=== PATIENT | female | born 1935 | race Caucasian/White ===

== ENCOUNTER 2019-09-19 07:14 | Outpatient (CLI) | payer MEDICARE, OTHER, SELFPAY ==
[2019-09-21 18:26] LABS: COVID-19 RT-PCR Result NEGATIVE (Negative)
== END 2019-09-19 07:34 ==
PROVIDERS: PCP Family Medicine; Visit Provider Ophthalmology
DX: Z03.818 Encounter for observation for suspected exposure to other biological agents ruled out (principal)
CPT/HCPCS: U0003

== ENCOUNTER 2019-09-22 06:32 | Day surgery (SDC) | payer MEDICARE, OTHER, SELFPAY ==
[2019-09-22 06:40] VITALS: BP 207/94; PULSE 72; RESP 18; TEMP 36.5; O2SAT 18
[2019-09-22] MEDS: Lactated Ringers 1,000 ML 100 ML IV (07:10)
[2019-09-22] MEDS: Balanced Salt Soln.-PLUS 500 ML BAG (07:31)
[2019-09-22] MEDS: Lidocaine 1% Pres-Free 5 ML VIAL (07:32)
[2019-09-22] MEDS: Tetracaine 0.5% 4 ML BTL OD (07:32)
[2019-09-22] MEDS: Povidone-Iodine Ophth 30 ML BTL (07:33)
[2019-09-22] MEDS: Lidocaine 2% Jelly 6 ML SYR (07:33)
[2019-09-22] MEDS: Moxifloxacin-PF 1 MG/ML VIAL (07:34)
[2019-09-22 08:14] VITALS: BP 140/40; PULSE 61; RESP 12; TEMP 36; O2SAT 96
--- NOTE | 2019-09-22 08:14 | W.PM.DSUDISC ---
Discharge Plan Disposition Patient Disposition: HOME Condition: Good Discharge Details Attending Provider: Harmeet Joseph Primary Care Provider: Markus Weaver Home Meds and New Rx's Prescriptions: No Action acetaminophen 500 MG tablet 250 - 500 mg PO PRN PRN (Reason: Pain) RF: 0 dorzolamide-timolol 22.3-6.8 mg/mL Drops 1 drp OPHTHALMIC (EYE) BID RF: 0 Multivitamin 50 Plus Tablet 1 tab PO DAILY RF: 0 potassium gluconate 595 mg (99 mg) Tablet 99 mg PO DAILY RF: 0 magnesium oxide 400 mg magnesium Capsule 400 mg PO DAILY RF: 0 Discharge Instructions Stand Alone Forms: Post-op Topical Cataract, Jourdan Portillo (DSU) Discharge Orders Discharge Orders: Discharge Order (Routine); Ordered 09/22/19 Ordered By: Harmeet Joseph DS: Diagnosis Discharge Diagnosis (1) Cortical cataract of right eye: Status: Resolved (2) Nuclear sclerotic cataract of right eye: Status: Resolved (3) Posterior subcapsular age-related cataract, right eye: Status: Resolved (4) Myopic macular degeneration of both eyes: Status: Chronic
--- NOTE | 2019-09-22 08:17 | ROE_ITS ---
Date of service: 09/22/19 Time of Service: 08:17 Operative Note Operative Note DATE OF PROCEDURE: 09/22/19 PRE-OP DIAGNOSIS: Nuclear/cortical/posterior subcapsular cataract, right eye; High myopia/degenerative myopia POST-OP DIAGNOSIS: same PROCEDURE: Cataract extraction using phacoemulsification with intraocular lens implant, right eye SURGEON: Harmeet Joseph ANESTHESIA: MAC and local (sub-tenon's anesthetic infiltration) ESTIMATED BLOOD LOSS: 0 PATHOLOGY: none sent COMPLICATIONS: None Patient was transported to: same day Patient's condition: stable Implants: [employer] / [employer] Tecnis [id number] intraocular lens Indications: Progressive decreased vision due to cataract, right eye Procedure Description: CATARACT SURGERY OPERATIVE REPORT PREOPERATIVE DIAGNOSIS: Nuclear/cortical/posterior subcapsular cataract, right eye High myopia/degenerative myopia POSTOPERATIVE DIAGNOSIS: Same OPERATION: Cataract extraction using phacoemulsification with posterior chamber intraocular lens implant, right eye. IOL: IOL Personnel Security Assistant/Model: [employer] Vision / ADI Tecnis ZCB00 IOL Power: + 10.0 diopters IOL Serial Number: [id number] Optic Diameter: 6.0mm Haptic/Overall Diameter: 13.0mm PHACO INFO: Sai Centurion Vision System with OZil and Active Fluidics Cumulative Dispersed Energy (CDE): 11.15 seconds SURGEON: Harmeet Joseph MD, LEWIS ANESTHESIA: Monitored Anesthesia Care (MAC), with local sub-tenon's anesthetic infiltration COMPLICATIONS: None SPECIMENS: None INDICATIONS FOR PROCEDURE: The patient is an 84-year-old lady with history of high myopia with myopic degeneration and primary open-angle glaucoma. She has significant myopic macular degeneration and poor central visual acuity. She has previously undergone cataract surgery in her left eye in 2015. She now presents for cataract surgery in the right eye. Postoperative visually will be severely limited by the presence of myopic macular degeneration. Severe anxiety prevents surgery under local anesthesia with sedation PROCEDURE: The correct surgical eye was identified and marked as the right eye and the pupil was dilated in the preoperative area using mydriatics and cycloplegics. The dilated pupil size was 7.0 mm. The patient was brought to the operating room where cardiopulmonary monitoring was instituted and surgical time-out was performed, confirming the correct operative eye and IOL power. IV sedation was administered and general/LMA anesthesia instituted. Topical anesthesia was administered and ophthalmic povidone-iodine 5% was instilled into the conjunctival fornices. Lidocaine gel was applied to the cornea and the estella-ocular area was prepped with Betadine 10% solution and draped in the usual sterile fashion for intraocular surgery, including an aperture drape. A Tegaderm transparent film dressing was cut in half and used to cover the lashes and lid margins. Care was taken to sequester the lashes and lid margins under the Tegaderm dressing. A lid speculum was placed between the lids of the operative eye and the Omar-Fracisco operating microscope was maneuvered into position. Dee scissors were then used to make a conjunctival buttonhole approximately 6mm posterior to the limbus in the inferonasal quadrant. Blunt dissection was carried out to expose bare sclera, and a blunt-tipped sub-tenon?s anesthesia cannula was introduced and passed posteriorly along the globe where non-pre served plain lidocaine was injected into posterior sub-Tenon?s space. A sideport knife was used to make a paracentesis port inferiortemporally. Intraocular phenylephrine/lidocaine was injected into the anterior chamber. The anterior chamber was then filled with Healon Pro. Donn scissors and forceps were used to create a conjunctival peritomy at the 10 o'clock position. Hemostasis was obtained using bipolar cautery. A 2.4 mm keratome knife was then used to create a half-thickness scleral groove 1.5 mm posterior to the limbus and then to construct a scleral corneal tunnel extending approximately 1 to 1.5 mm into clear cornea.. A flap was raised on the anterior capsule and capsulorhexis forceps were used to complete a continuous curvilinear capsulorhexis of 4.8 mm. The anterior capsule was very thin with loose zonules. There was significant peripheral cortical spoking preventing clear view of mid peripheral and peripheral capsule, so the capsulorrhexis was smaller than usual. Balanced salt solution was then used to perform cortical cleaving hydrodissection and nuclear hydrodelineation until the lens could be freely rotated within the capsular bag. The lens nucleus was then disassembled and removed within the capsular bag and iris plane using phacoemulsification. Residual cortical material was removed using the I/A handpiece. The posterior capsule was carefully polished to remove as much residual lens epithelial cells as safely possible. The capsular bag was then inflated and the anterior chamber deepened with viscoelastic. The lens implant described above was inserted into the capsular bag using the ADI [place] Injector. A Kuglen hook was used to dial the IOL into position. Residual viscoelastic was then removed first from posterior to the IOL, then from the anterior chamber using the I/A handpiece. Extensive vacuuming of the underside of the anterior capsule was performed. The lens implant was noted to center nicely within the capsular bag. The incisions were stromally hydrated, and the anterior chamber was reformed using BSS. Then 0.5cc of moxifloxacin 1.0mg/ml were injected into the capsular bag and anterior chamber. The incisions were checked with a Weck spear and found to be secure. The conjunctiva was closed over the scleral incision using coaptation cautery. Several drops of ophthalmic povidone-iodine 5% were then applied to the eye followed by two drops of Imprimis combination prednisolone/moxifloxacin/nepafenac solution. The drapes were removed and a clear plastic protective eye shield was placed over the eye. The patient was then returned to [facility] in stable condition.
[2019-09-22 08:19] VITALS: BP 133/97; PULSE 70; RESP 14; TEMP 36; O2SAT 97
[2019-09-22 08:24] VITALS: BP 132/45; PULSE 69; RESP 10; TEMP 36; O2SAT 97
[2019-09-22 08:29] VITALS: BP 143/51; PULSE 67; RESP 12; TEMP 36; O2SAT 96
[2019-09-22 08:38] VITALS: BP 151/46; PULSE 63; RESP 15; TEMP 36; O2SAT 96
== END 2019-09-22 09:20 | disposition home or self-care (01) ==
PROVIDERS: PCP Family Medicine; Visit Provider Ophthalmology
PROC: (CPT 66984; principal; 2019-09-22 07:30)
DX: H25.11 Age-related nuclear cataract, right eye (principal); H25.011 Cortical age-related cataract, right eye; H25.041 Posterior subcapsular polar age-related cataract, right eye; H44.21 Degenerative myopia, right eye; H40.1110 Primary open-angle glaucoma, right eye, stage unspecified; Z98.42 Cataract extraction status, left eye; Z96.1 Presence of intraocular lens
CPT/HCPCS: 66984; V2632; J1100; J2405; J2704

== ENCOUNTER 2022-06-30 13:18 | Outpatient (CLI) | payer MEDICARE, OTHER, SELFPAY | END 2022-06-30 13:19 | disposition home or self-care (01) | LOC: DI.CM 13:19 | PROVIDERS: PCP Nurse Practitioner Family; Visit Provider Nurse Practitioner Family | DX: R06.02 Shortness of breath (principal) | CPT/HCPCS: 93010 ==

== ENCOUNTER 2022-06-30 13:49 | Emergency (ER) | payer MEDICARE, OTHER, SELFPAY ==
[2022-06-30] VITALS (20 sets, daily range): BP systolic 142–174; BP diastolic 48–98; PULSE 0–62; RESP 11–22; TEMP 36.5; O2SAT 96–99
--- NOTE | 2022-06-30 13:45 | RT.EKG_ITS ---
APPROVED REPORT Exam: Resting ECG Reason for Exam: chest pain Patient Location: E HR:30 bpm ECG Measurements Heart Rate 30 AXIS IA [id number] P 76 QRSd 119 QRS -55 QT 628 T 82 QTc 447 Conclusion AV block, complete (third degree)...V-rate< 60, AV dissociation Left anterior fascicular block...axis(240,-40), init forces inf Low voltage, precordial leads...precordial leads <1.0mV ----- 3rd degree heart block
--- NOTE | 2022-06-30 14:00 | DI.RAD_ITS ---
Exam(s) XR PORTABLE CHEST AP EXAM: XR PORTABLE CHEST AP CLINICAL HISTORY: heart block. TECHNIQUE: 2D digital imaging was performed. COMPARISON: CR CHEST 2 VIEWS PA,LAT from 03/14/2012 FINDINGS: Single AP portable view. There are chest pads in place Heart size is upper normal. The mediastinum is not widened. Increased vascular markings noted in the right lung field. No confluent infiltrates nor obvious pleu ral effusions. No pneumothorax. No fractures evident. IMPRESSION: Pulmonary venous hypertension pattern which appears to be confined to the right lung. DATA REPOSITORY: RADIATION DOSE DELIVERED:
[2022-06-30 14:17] LABS: Abs Immature Grans 0.01 10^3/uL (0.0-0.06); Absolute Basophil Count 0.03 10^3/uL (0.0-0.2); Absolute Eosinophil Count 0.05 10^3/uL (0.0-0.7); Absolute Lymphocyte Count 2.57 10^3/uL (1.2-3.4); Absolute Monocyte Count 0.41 10^3/uL (0.1-0.8); Absolute Neutrophil Count 2.95 10^3/uL (1.2-6.7); Basophils % 0.5; Eosinophils % 0.8; HCT 36.3 % (36.0-46.0); HGB 11.9 g/dL (11.2-15.7); Immature Grans % 0.2; Lymphocytes % 42.7; MCH 31.7 pg (27.0-33.0); MCHC 32.8 % (32.0-36.0); MCV 97 fL (80-95); MPV 11.4 fL (8.0-11.0); Monocytes % 6.8; Platelet Count 175 10^3/uL (130-400); RBC 3.75 10^6/uL (3.93-5.22); RDW 13.4 % (11.7-14.6); RDW-SD 47.6 fL; WBC 6.02 10^3/uL (4.4-10.8)
[2022-06-30 14:27] LABS: Source Nasal/Nares
[2022-06-30 14:41] LABS: ALT 84 U/L (14-59); AST 45 U/L (15-37); Albumin 3.1 g/dL (3.4-5.0); Alkaline Phosphatase 90 U/L (46-116); BUN 37 mg/dL (7-18); Bilirubin, Total 0.7 mg/dL (0.2-1.0); CREATININE 2.2 mg/dL (0.55-1.02); Calcium 8.3 mg/dL (8.5-10.1); Chloride 109 mmol/L (98-107); Estimated GFR 21.43 (mL/min/1.73m2); Glucose 114 mg/dL (74-106); Magnesium 2.3 mg/dL (1.8-2.4); Potassium 5.2 mmol/L (3.5-5.1); Sodium 140 mmol/L (136-145); TSH (W/Ref FT4) 2.75 uIU/mL (0.36-3.74); Total Protein 6.2 g/dL (6.4-8.2); Troponin I < 50 ng/L (<or=60)
[2022-06-30 15:30] LABS: COVID-19 PCR Negative (Negative)
--- NOTE | 2022-06-30 15:44 | ED.GENADUL_ITS ---
Discharge Plan Disposition Patient Disposition: Transfer-Acute Inpatient Care Specific Acute Inpt Facility: [facility] Condition: Serious Discharge Details Clinical Impression: Third degree heart block, Diarrhea, Syncope, Acute renal insufficiency Primary Care Provider: Clarke Song ED Provider: Trish Tee Home Meds and New Rx's Prescriptions: No Action acetaminophen 500 MG tablet 250 - 500 mg PO PRN PRN (Reason: Pain) dorzolamide-timolol 22.3-6.8 mg/mL Drops 1 drp OPHTHALMIC (EYE) BID Multivitamin 50 Plus Tablet 1 tab PO DAILY potassium gluconate 595 mg (99 mg) Tablet 99 mg PO DAILY magnesium oxide 400 mg magnesium Capsule 400 mg PO DAILY Medical Decision Making 87-year-old female presents for evaluation after syncopal episode. She was found to be bradycardic. She received atropine in route without any improvement. At time of ED arrival she is awake and alert. She was maintained on pacer pads. She did not require any atropine. She was not unstable during her visit. She is hypertensive. Patient is not on oral beta-blockers. No known history of tick bite. EKG was performed and shows third-degree heart block. She does have slight increase in BUN and creatinine from baseline. She received 500 mL of IV fluid prior to ED arrival. Patient requesting to complete advanced directives. Case management was called. Patient states that she does not want to be intubated. She does not want to have to live in a custodial. She is agreeable to short amount of CPR. She is agreeable to transfer for pacemaker placement. Case was discussed with cardiology at [facility], Dr. Bernard and patient was accepted in transfer. Patient's family at bedside during evaluation. HPI General Date/Time Provider Initiated Documentation: 06/30/22 14:05 . HPI Narrative: 87-year-old female presents for evaluation after syncopal episode. Patient states that she had a doctor's appointment today for evaluation of shortness of breath. She has been having intermittent shortness of breath with exertion for the last month or more. She states that she made it to the doctor's office but prior to checking in for the appointment she had a syncopal episode. Patient has longstanding history of syncope. She states that she has syncope for mu ltiple reasons. She does often have difficulty with medical procedures medical evaluation. She denies any chest pain. She denies any shortness of breath at this time. EMS was called after syncopal episode and patient was noted to be bradycardic. Her heart rate was in the 30s. She was given atropine without any significant improvement. Time of my evaluation she is awake and alert. She denies any fevers. No cough or cold. She does not take any beta-blockers. She states that she is thirsty. She had 3 large coffees this morning and then had some diarrhea afterward. She does have a history of muscle cramps which she takes potassium and magnesium supplementation for. No history of diabetes. No history of tick bites or rashes. No history of arrhythmias in the past. Denies any cough or cold. No abdominal pain. No urinary difficulties. Patient is legally blind at baseline. She is not on any blood thinners. Related Data Home Medications Medication Instructions Recorded Confirmed acetaminophen 500 mg tablet 250 - 500 mg PO PRN PRN Pain 07/17/14 06/30/22 dorzolamide 22.3 mg-timolol 6.8 1 drp ophthalmic (eye) BID 09/20/19 06/30/22 mg/mL eye drops magnesium oxide 400 mg PO DAILY 09/20/19 06/30/22 [id number]-[id number] 1 tab PO DAILY 09/20/19 06/30/22 tablet (Multivitamin 50 Plus tablet) potassium gluconate 595 mg (99 mg) 99 mg PO DAILY 09/20/19 06/30/22 tablet Allergies Allergy/AdvReac Type Severity Reaction Status Date / Time codeine Allergy Severe Hives, GI Unverified 06/30/22 14:06 Upset venom-honey bee Allergy Severe Swelling/Ed Unverified 06/30/22 14:06 [bee venom (honey bee)] terence General Stated Complaint: [id number] EDNA: 2 Review of Systems Narrative: Remainder of review of systems otherwise negative except for as noted in the HPI x10. 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 Status post cataract extraction and insertion of intraocular lens of left eye (Chronic) 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) Myopic macular degeneration of both eyes (Chronic) Glaucoma (Acute) Legal blindness (Acute) Macular degeneration (Acute) Silent myocardial infarction (Acute) Cataracts, bilateral (Acute) Medical History Absolute glaucoma of both eyes Leg cramps Macular degeneration Surgical History Cholecystectomy (~1997) History of cataract surgery History of laser iridotomy Laser surgery eyes Social History Smoking/Tobacco Use Status: Former Tobacco Use Smoking risk assessment performed?: Yes Alcohol Intake: never Drug use: Never Substance use type: does not use Do you feel safe at home: Yes Do you feel safe in your relationship?: Yes Exam Narrative Exam Narrative: General: non-toxic, no respiratory distress, comfortable HEENT: normocephalic, atraumatic, lids and lashes normal, PERRL, EOMI, anicteric sclera, no conjunctival injection, moist oral mucosa Card: Bradycardic, S1S2, no murmurs, rubs, or gallops Lungs: good air entry, clear to auscultation bilaterally. no wheezes, rales, rhonchi, or retractions Abd: soft, non-tender, non-distended, normal bowel sounds, no rebound or guarding, no peritoneal signs Musculoskeletal: full range of motion of arms and legs, no tenderness to palpation. no clubbing, cyanosis, or edema Neurologic: appropriate for age, strength normal Psych: alert and oriented Skin: no petechiae, no lesions, warm and dry Course Vital Signs Vital signs: Vital Signs Temperature 36.5 C 06/30/22 13:59 Pulse 31 L 06/30/22 13:59 Respiratory Rate 18 06/30/22 13:59 Blood Pressure 160/54 H 06/30/22 13:59 Pulse Oximetry 98 06/30/22 13:59 Temperature 36.5 C 06/30/22 13:59 Pulse 31 L 06/30/22 13:59 Pulse 29 L 06/30/22 15:40 Respiratory Rate 14 06/30/22 15:40 Respiratory Effort Short of Breath 06/30/22 14:13 Respiratory Depth Normal 06/30/22 14:13 Respiratory Pattern Normal 06/30/22 14:13 Blood Pressure 174/48 H 06/30/22 14:38 Blood Pressure Mean 79 06/30/22 14:38 Blood Pressure Position Sitting 06/30/22 13:59 Pulse Oximetry 98 06/30/22 15:40 Oxygen Delivery Method Room Air 06/30/22 13:59 Oxygen Flow Rate 0 06/30/22 13:59 Pain Level 0 06/30/22 13:59 Lab/Test Results Lab/Test Results: Laboratory Tests Range/Units 06/30/22 06/30/22 06/30/22 13:55 13:55 13:55 WBC (4.4-10.8) 10^3/uL 6.02 RBC (3.93-5.22) 10^6/uL 3.75 L Hgb (11.2-15.7) g/dL 11.9 Hct (36.0-46.0) % 36.3 MCV (80-95) fL 97 H MCH (27.0-33.0) pg 31.7 MCHC (32.0-36.0) % 32.8 RDW (11.7-14.6) % 13.4 Plt Count (130-400) 10^3/uL 175 MPV (8.0-11.0) fL 11.4 H Immature Gran % 0.2 Neutrophils % 49.0 Lymphocytes % 42.7 Monocytes % 6.8 Eosinophils % 0.8 Basophils % 0.5 Nucleated RBC % (0.0-0.3) % 0.0 Absolute Neutrophils (1.2-6.7) 10^3/uL 2.95 Absolute Lymphocytes (1.2-3.4) 10^3/uL 2.57 Absolute Monocytes (0.1-0.8) 10^3/uL 0.41 Absolute Eosinophils (0.0-0.7) 10^3/uL 0.05 Absolute Basophils (0.0-0.2) 10^3/uL 0.03 Sodium (136-145) mmol/L 140 Cancelled Potassium (3.5-5.1) mmol/L 5.2 H Cancelled Chloride (98-107) mmol/L 109 H Cancelled Carbon Dioxide (21.0-32.0) mmol/L 23.0 Cancelled Anion Gap (3-11) mmol/L 8.0 Cancelled BUN (7-18) mg/dL 37 H Cancelled Creatinine (0.55-1.02) mg/dL 2.2 H Cancelled Est GFR (CKD-EPI 2020) (mL/min/1.73m2) 21.43 Cancelled Glucose (74-106) mg/dL 114 H Cancelled Calcium (8.5-10.1) mg/dL 8.3 L Cancelled Magnesium (1.8-2.4) mg/dL 2.3 Cancelled Total Bilirubin (0.2-1.0) mg/dL 0.7 Cancelled AST (15-37) U/L 45 H Cancelled ALT (14-59) U/L 84 H Cancelled Alkaline Phosphatase (46-116) U/L 90 Cancelled Troponin I (<or=60) ng/L < 50 Total Protein (6.4-8.2) g/dL 6.2 L Cancelled Albumin (3.4-5.0) g/dL 3.1 L Cancelled TSH (0.36-3.74) uIU/mL 2.75 COVID-19 Source SARS-CoV-2 (PCR) (Negative) Range/Units 06/30/22 14:25 WBC (4.4-10.8) 10^3/uL RBC (3.93-5.22) 10^6/uL Hgb (11.2-15.7) g/dL Hct (36.0-46.0) % MCV (80-95) fL MCH (27.0-33.0) pg MCHC (32.0-36.0) % RDW (11.7-14.6) % Plt Count (130-400) 10^3/uL MPV (8.0-11.0) fL Immature Gran % Neutrophils % Lymphocytes % Monocytes % Eosinophils % Basophils % Nucleated RBC % (0.0-0.3) % Absolute Neutrophils (1.2-6.7) 10^3/uL Absolute Lymphocytes (1.2-3.4) 10^3/uL Absolute Monocytes (0.1-0.8) 10^3/uL Absolute Eosinophils (0.0-0.7) 10^3/uL Absolute Basophils (0.0-0.2) 10^3/uL Sodium (136-145) mmol/L Potassium (3.5-5.1) mmol/L Chloride (98-107) mmol/L Carbon Dioxide (21.0-32.0) mmol/L Anion Gap (3-11) mmol/L BUN (7-18) mg/dL Creatinine (0.55-1.02) mg/dL Est GFR (CKD-EPI 2020) (mL/min/1.73m2) Glucose (74-106) mg/dL Calcium (8.5-10.1) mg/dL Magnesium (1.8-2.4) mg/dL Total Bilirubin (0.2-1.0) mg/dL AST (15-37) U/L ALT (14-59) U/L Alkaline Phosphatase (46-116) U/L Troponin I (<or=60) ng/L Total Protein (6.4-8.2) g/dL Albumin (3.4-5.0) g/dL TSH (0.36-3.74) uIU/mL COVID-19 Source Nasal/Nares SARS-CoV-2 (PCR) (Negative) Negative Critical Care Time Critical Care Time Attestation: CRITICAL CARE Total critical care time: 50 minutes Critical concerns: Third-degree heart block Critical care interventions: Pacer pads, frequent reassessment, family discussion, cardiology consultation Total critical care time included the assessment and discussions as described in the emergency department history, physical, and medical decision making. The critical care time provided excludes separately billable procedures.
[2022-06-30 16:06] LABS: NT-proBNP 7190 pg/mL (<300)
--- NOTE | 2022-06-30 16:08 | PDOC.CMPRO ---
Date of service: 06/30/22 Time of Service: 16:08 Care Management Progress Note Progress Note Text Progress Note Text: Kristin presents in the ED via EMS for third degree heart block and syncope. At the request of ED provider, EDUARD meets with Kristin, her daughter and granddaughter to assist in completing an Advance Directives.
--- NOTE | 2022-06-30 17:45 | NUR.NOTE ---
Nursing Note: BNP faxed to [facility].
[2022-07-01 11:14] LABS: Lyme Ab w Rflx to Lyme Confirm Negative (Negative)
== END 2022-06-30 16:14 | disposition short-term general hospital (02) ==
PROVIDERS: Emergency Provider Emergency Medicine Emergency Medical Services; PCP Nurse Practitioner Family
DX: R55 Syncope and collapse (principal); R06.02 Shortness of breath; R19.7 Diarrhea, unspecified; N28.9 Disorder of kidney and ureter, unspecified; I44.2 Atrioventricular block, complete
CPT/HCPCS: 36415; 36416; 80053; 82962; 87635; 93005; 99291; 71045; 83735; 83880; 84443; 84484; 85025; 86618; 93010

== ENCOUNTER 2022-07-09 17:00 | Observation (INO) | payer MEDICARE, OTHER, SELFPAY ==
--- NOTE | 2022-07-09 17:00 | RT.EKG_ITS ---
APPROVED REPORT Exam: Resting ECG Reason for Exam: sob Patient Location: E HR:92 bpm ECG Measurements Heart Rate 92 AXIS OR 150 P 84 QRSd 103 QRS -68 QT 428 T [id number] QTc 513 Conclusion Sinus rhythm...normal P axis, V-rate 60- 99 Ventricular premature complex...V complex w/ short R-R interval Left anterior fascicular block...axis(240,-40), init forces inf Low voltage, precordial leads...precordial leads <1.0mV Nonspecific T abnrm, anterolateral leads...T <-0.10mV, I aVL V2-V6 Prolonged QT interval...QTc >500mS motion artifact no stemi
[2022-07-09 17:04] VITALS: BP 202/77; PULSE 93; RESP 22; TEMP 36.5; O2SAT 92
--- NOTE | 2022-07-09 17:15 | DI.RAD_ITS ---
Exam(s) XR PORTABLE CHEST AP EXAM: XR PORTABLE CHEST AP CLINICAL HISTORY: shortness of breath TECHNIQUE: 2D digital imaging was performed of the chest. One image was obtained. An AP view was ob tained. COMPARISON: CR XR PORTABLE CHEST AP from 06/30/2022 FINDINGS: MEDIASTINUM: Normal. HEART: Normal. The cardiac pacing wires are in good position. PULMONARY VASCULATURE: Normal. LUNGS: Clear. PLEURAL SPACE: No pleural effusion or pneumothorax. BONE:Within normal limits for the patient's age. OTHER FINDINGS:Normal. IMPRESSION: No acute pulmonary findings. DATA REPOSITORY: RADIATION DOSE DELIVERED:
--- NOTE | 2022-07-09 17:25 | ED.GENADUL_ITS ---
Discharge Plan Disposition Patient Disposition: Admit to [facility] Condition: Stable Discharge Details Chief Complaint: SOB Clinical Impression: Shortness of breath, Wheezing Primary Care Provider: Clarke Song ED Provider: Abdoulaye Guerrero Home Meds and New Rx's Prescriptions: No Action amlodipine 5 mg tablet 5 mg PO DAILY Rx Instructions: 07/03/22-rx[place] by [facility] [place] following pacemaker placement/pps acetaminophen 500 MG tablet 250 - 500 mg PO PRN PRN (Reason: Pain) dorzolamide-timolol 22.3-6.8 mg/mL Drops 1 drp OPHTHALMIC (EYE) BID Multivitamin 50 Plus Tablet 1 tab PO DAILY potassium gluconate 595 mg (99 mg) Tablet 99 mg PO DAILY magnesium oxide 400 mg magnesium Capsule 400 mg PO DAILY Medical Decision Making 87 yo female who had 3rd degree heart block and pacemaker placed last week [place] [facility] [place], history of smoking and quit 10 years ago, who comes in with shortness of breath and cough worsening over a week.She denies severe chest pain/pressure. She denies fevers/chills. She arrives caox4 speaking in 2-3 word sentences. She has diffuse wheezing in all lung forde, mild edema of both lower legs up to the mid tibia, no murmurs. On bedside u/s has no evidence of lv dysfunction and no significant pericardial effusion, does have evidence of b lines bilaterally in the lungs as well. Her exam and history are concerning for possible copd vs chf exacerbation, will treat with solumedrol, duoneb and give a dose of lasix. Will also obtain cbc, cmp, troponin and portable chest xray, and obtain d dimer. She confirms she is dni on my exam. pt feels better though still has diffuse wheezing in all lung forde, speaking in 3-4 word sentences.xray unremarkable, does have elevated d dimer, will proceed with CTA for pe and administer an albueterol nebulizer when she returns. cta shows no pe, does have evidence of emphysema and pneumonitis, still has diffuse wheezing and room air sat is 91% currently. Given continued wheezing will discuss with hospitalist about admission Differential Diagnosis Differential Diagnosis: copd, chf, pe Medical Records Medical records reviewed: Yes I reviewed the patient's medical records. Imaging Data Radiologic Study: Attestation: I personally reviewed and interpreted this imaging study as follows: Imaging: X-Ray Radiologist's impression: PROCEDURE INFORMATION: Exam: XR Chest Exam date and time: 07/09/2022 18:12 Age: 87 years old Clinical indication: Shortness of breath TECHNIQUE: Imaging protoco l: Radiologic exam of the chest. Views: 1 view. COMPARISON: CR XR PORTABLE CHEST AP 06/30/2022 14:23 FINDINGS: Tubes, catheters and devices: Dual lead pacemaker in the expected position. Lungs: No consolidation. Pleural spaces: No pleural effusion. No pneumothorax. Heart/Mediastinum: No cardiomegaly. Bones/joints: No acute fracture. IMPRESSION: Negative portable chest. Thank you for allowing us to participate in the care of your patient. Radiologic Study #2: Attestation: I personally reviewed and interpreted this imaging study as follows: Imaging: CT Scan Radiologist's impression: IMPRESSION: 1. Findings suggesting a very minimal pneumonitis or atypical infection. 2. Mild, acute or chronic bronchitis. 3. No pulmonary emboli are seen. 4. Additional findings as described. Lab Data Lab results reviewed: Yes I reviewed the patient's lab results. ECG Data Attestation: I personally reviewed and interpreted this ECG (s) as follows: Prior ECG tracings: available for review Interpretation: 1st ekg sinus with motior artifact, no stemi pr 150 2nd ekg sinus, rate of 102, pr 171, qtc 441, no stemi HPI General Mode of arrival: wheelchair . Date/Time Provider Initiated Documentation: 07/09/22 17:04 . Limitations to Documentation: no limitations . Information obtained by: patient . History of Present Illness 87 year old F presents to the emergency department with the chief complaint of shortness of breath, described as moderate, Patient started experiencing this day(s) (4) and it has been constant. No relieving factors improve symptom(s), No exacerbating factors reported . Patient notes cough; denies chest pain and fever/chills. Patient did receive the following treatments prior to arrival, none Related Data Home Medications Medication Instructions Recorded Confirmed acetaminophen 500 mg tablet 250 - 500 mg PO PRN PRN Pain 07/17/14 07/09/22 dorzolamide 22.3 mg-timolol 6.8 1 drp ophthalmic (eye) BID 09/20/19 07/09/22 mg/mL eye drops magnesium oxide 400 mg PO DAILY 09/20/19 07/09/22 [id number]-[id number]-[id number] 1 tab PO DAILY 09/20/19 07/09/22 tablet (Multivitamin 50 Plus tablet) potassium gluconate 595 mg (99 mg) 99 mg PO DAILY 09/20/19 07/09/22 tablet amlodipine 5 mg tablet 5 mg PO DAILY 07/08/22 07/09/22 Allergies Allergy/AdvReac Type Severity Reaction Status Date / Time codeine Allergy Severe Hives, GI Unverified 07/09/22 17:12 Upset venom-honey bee Allergy Severe Swelling/Ed Unverified 07/09/22 17:12 [bee venom (honey bee)] terence General Stated Complaint: SOB EDNA: 3 Review of Systems All systems reviewed & are unremarkable except as noted in HPI and below Constitutional Constitutional: Denies chills and Denies fever(s) Cardiovascular Cardiovascular: Denies chest pain Gastrointestinal Gastrointestinal: Denies abdominal pain, Denies nausea and Denies vomiting Integumentary/Breasts Skin/Breast: Denies rash PFSH All Active Problems (Updated 07/09/22 @ 19:47 by Abdoulaye Guerrero MD) Third degree heart block (Acute) Diarrhea (Acute) Syncope (Chronic) Acute renal insufficiency (Acute) Shortness of breath (Acute) Wheezing (Acute) 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 Status post cataract extraction and insertion of intraocular lens of left eye (Chronic) 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) Myopic macular degeneration of both eyes (Chronic) Glaucoma (Acute) Legal blindness (Acute) Macular degeneration (Acute) Silent myocardial infarction (Acute) Cataracts, bilateral (Acute) Medical History Absolute glaucoma of both eyes Leg cramps Macular degeneration Surgical History Cholecystectomy (~1997) History of cataract surgery History of laser iridotomy Laser surgery eyes Social History Smoking/Tobacco Use Status: Former Tobacco Use Smoking risk assessment performed?: Yes Alcohol Intake: never Drug use: Never Substance use type: does not use Do you feel safe at home: Yes Do you feel safe in your relationship?: Yes Exam Const General: no acute distress Orientation: alert HENMT Head: normal to inspection Ears: external ears normal General nose exam: external nose normal Mouth: moist mucous membranes Eyes General: appearance normal, both eyes and all related structures Neck Neck: normal visual inspection Resp Auscultation: clear to auscultation bilaterally Cardio Rate: regular rate Skin General skin exam: no rashes or lesions noted Neuro General: patient alert and patient oriented x3 Extrem General: normal to inspection Psych Mental Status: mental status grossly normal Course Vital Signs Vital signs: Vital Signs Temperature 36.5 C 07/09/22 17:04 Pulse 93 H 07/09/22 17:04 Respiratory Rate 22 07/09/22 17:04 Blood Pressure 202/77 H 07/09/22 17:04 Pulse Oximetry 92 07/09/22 17:04 Temperature 36.5 C 07/09/22 17:04 Temperature Source Tympanic 07/09/22 17:04 Pulse 93 H 07/09/22 17:04 Respiratory Rate 22 07/09/22 17:04 Respiratory Effort Short of Breath 07/09/22 17:10 Blood Pressure 202/77 H 07/09/22 17:04 Pulse Oximetry 92 07/09/22 17:04 Oxygen Delivery Method Room Air 07/09/22 17:04 Oxygen Flow Rate 0 07/09/22 17:04 Pain Level 0 07/09/22 17:04 POCUS Exam (ED) Limited Cardiac Exam DATE OF EXAM: 07/09/22 TIME OF EXAM: 17:51 PROVIDER THAT PERFORMED THE STUDY: Abdoulaye Guerrero REASON FOR EXAM: Dyspnea VISUALIZED STRUCTURES: Left ventricle and Right ventricle VIEW OBTAINED: Parasternal long-axis PERTINENT FINDINGS/IMPRESSION: No LV dysfunction Exam complete
[2022-07-09 17:41] LABS: Abs Immature Grans 0.01 10^3/uL (0.0-0.06); Absolute Basophil Count 0.02 10^3/uL (0.0-0.2); Absolute Eosinophil Count 0.05 10^3/uL (0.0-0.7); Absolute Lymphocyte Count 2.35 10^3/uL (1.2-3.4); Absolute Monocyte Count 0.55 10^3/uL (0.1-0.8); Absolute Neutrophil Count 2.06 10^3/uL (1.2-6.7); Basophils % 0.4; HCT 38.5 % (36.0-46.0); HGB 12.5 g/dL (11.2-15.7); Immature Grans % 0.2; Lymphocytes % 46.6; MCH 31.5 pg (27.0-33.0); MCHC 32.5 % (32.0-36.0); MCV 97 fL (80-95); MPV 10.1 fL (8.0-11.0); Monocytes % 10.9; Neutrophils % 40.9; Platelet Count 160 10^3/uL (130-400); RBC 3.97 10^6/uL (3.93-5.22); RDW 13.2 % (11.7-14.6); RDW-SD 47.6 fL; WBC 5.04 10^3/uL (4.4-10.8)
[2022-07-09] MEDS: Furosemide 20 MG/2 ML VIAL IVP (17:45)
[2022-07-09] MEDS: Albuterol/Ipratropium 3 ML UPD VIAL UPD ×2 (17:45→18:09)
[2022-07-09] MEDS: methylPREDNISolone SUCC 125 MG VIAL IVP (17:46)
[2022-07-09 17:55] LABS: PTT Activated 26.9 sec (21.5-31.9); Prothrombin Time 9.8 sec (9.3-11.0)
--- NOTE | 2022-07-09 18:00 | DI.CT_ITS ---
Exam(s) CT CHEST PE CTA EXAM: CT CHEST PE CTA CLINICAL HISTORY: shortness of breath, elevated d dimer,recent pacer. TECHNIQUE: Imaging Protocol: Axial CT angiography was performed with multi-slice acquisition and mu lti-planar and/or 3D reconstructions. CONTRAST MATERIAL: Intravenous: Omnipaque 350 contrast volume:100 mL COMPARISON: CR,XR XR PORTABLE CHEST AP from 07/09/2022 FINDINGS: The examination is limited due to patient motion artifact. Tracheobronchial tree: There is a small amount of debris in dependent trachea. Pulmonary parenchyma: Centrilobular emphysema is present. No focal consolidating infiltrates are pre sent. Small scattered ground-glass nodular densities most pronounced in the right lower lobe. Pulmonary Arteries: No evidence of filling defect to suggest pulmonary emboli. Mediastinum and Marcela: No dominant adenopathy or fluid collection. The esophagus is unremarkable. Visualized thyroid gland: Unremarkable. Pleura: No effusion or pneumothorax. Heart: The heart is not dilated. No coronary artery calcifications are seen. No pericardial effusion. Aorta: Thoracic aorta non-dilated. No evidence of dissection. Atherosclerosis is present. Upper abdomen: Status post cholecystectomy. Tubes, Catheters, and Lines: Cardiac pacemaker is in place. Soft tissues: Unremarkable. Bones: Within normal limits for the patient's age. IMPRESSION: 1. No evidence of pulmonary embolism, thoracic aortic dissection or aneurysm. 2. Small scattered ground-glass densities in the right lower lobe which may represent small airways d isease, mild pneumonitis or atypical infection. RADIATION DOSE DELIVERED: 513.12mGy.cm Total DLP DATA REPOSITORY: All CT scans at this facility are submitted to the National Radiology Data Registry (NRDR) Dose Index Registry (DIR) with the [employer] ([employer]). RADIATION OPTIMIZATION: All CT scans at this facility use at least one of these dose optimization te chniques: automated exposure control; mA and/or kV adjustment per patient size (includes targeted exa ms where dose is matched to clinical indication); or iterative reconstruction.
[2022-07-09 18:03] LABS: ALT 30 U/L (14-59); AST 29 U/L (15-37); Albumin 3.3 g/dL (3.4-5.0); Alkaline Phosphatase 75 U/L (46-116); Anion Gap 6.4 mmol/L (3-11); BUN 16 mg/dL (7-18); Bilirubin, Total 0.5 mg/dL (0.2-1.0); CO2 29.6 mmol/L (21.0-32.0); CREATININE 1.5 mg/dL (0.55-1.02); Calcium 8.8 mg/dL (8.5-10.1); Chloride 103 mmol/L (98-107); Estimated GFR 33.94 (mL/min/1.73m2); Glucose 118 mg/dL (74-106); Lipase 47 U/L (16-77); Magnesium 2.1 mg/dL (1.8-2.4); NT-proBNP 1249 pg/mL (<300); Potassium 4.2 mmol/L (3.5-5.1); Sodium 139 mmol/L (136-145); Total Protein 7.1 g/dL (6.4-8.2); Troponin I < 50 ng/L (<or=60)
[2022-07-09 18:09] VITALS: PULSE 90; RESP 21; RESP 7; RESP 8; O2SAT 95
[2022-07-09 18:10] LABS: D-Dimer 1273 ng/mlFEU (<500)
[2022-07-09 18:31] LABS: COVID-19 PCR Negative (Negative); Influenza A PCR Negative (Negative); Influenza B PCR Negative (Negative); RSV PCR Negative (Negative)
[2022-07-09 18:32] LABS: Source Nasopharynx
--- NOTE | 2022-07-09 18:37 | DI.VRAD_ITS ---
PROCEDURE INFORMATION: Exam: XR Chest Exam date and time: 07/09/2022 18:12 Age: 87 years old Clinical indication: Shortness of breath TECHNIQUE: Imaging protocol: Radiologic exam of the chest. Views: 1 view. COMPARISON: CR XR PORTABLE CHEST AP 06/30/2022 14:23 FINDINGS: Tubes, catheters and devices: Dual lead pacemaker in the expected position. Lungs: No consolidation. Pleural spaces: No pleural effusion. No pneumothorax. Heart/Mediastinum: No cardiomegaly. Bones/joints: No acute fracture. IMPRESSION: Negative portable chest. Dictated and Authenticated by: Carmen Bedoya MD. Ordering:DAGMAR Stanford MD
--- NOTE | 2022-07-09 18:45 | RT.EKG_ITS ---
APPROVED REPORT Exam: Resting ECG Reason for Exam: dyspnea Patient Location: E HR:102 bpm ECG Measurements Heart Rate 102 AXIS SD 171 P 84 QRSd 99 QRS -67 QT 337 T 224 QTc 441 Conclusion Sinus tachycardia...rate> 99 Left anterior fascicular block...axis(240,-40), init forces inf Low voltage, precordial leads...precordial leads <1.0mV
[2022-07-09] MEDS: Normal Saline Flush 10 ML SYR IVP ×3 (18:53→21:24)
[2022-07-09] MEDS: Omnipaque 350 MG/ML 100 ML BTL IJ (18:53)
[2022-07-09] MEDS: Normal Saline - Diluent 50 ML VIAL IJ (18:53)
[2022-07-09] MEDS: Albuterol 2.5 MG/3 ML INH SOLN VIAL UPD (19:20)
--- NOTE | 2022-07-09 19:28 | DI.VRAD_ITS ---
PROCEDURE INFORMATION: Exam: CTA Chest With Contrast Exam date and time: 07/09/2022 18:58 Age: 87 years old Clinical indication: Abnormal findings; Abnormal diagnostic tests; Elevated d-dimer; Prior surgery; Surgery date: <1 month; Surgery type: Pacemaker; Patient HX: Shortness of breath, elevated d dimer, recent pacer TECHNIQUE: Imaging protocol: Computed tomographic angiography of the chest with contrast. 3D rendering (Not supervised by radiologist): MIP and/or 3D reconstructed images were created by the technologist. Radiation optimization: All CT scans at this facility use at least one of these dose optimization techniques: automated exposure control; mA and/or kV adjustment per patient size (includes targeted exams where dose is matched to clinical indication); or iterative reconstruction. Contrast material: OMNIPAQUE 350; Contrast volume: 100 ml; Contrast route: INTRAVENOUS (IV); COMPARISON: CR XR PORTABLE CHEST AP 07/09/2022 18:12 FINDINGS: Tubes, catheters and devices: Left chest wall pacemaker in satisfactory position. Minor edema and gas left chest wall compatible with recent placement. Pulmonary arteries: No pulmonary emboli. Minor prominence centrally suggests chronic PA hypertension. Aorta: No aortic aneurysm. No aortic dissection. Lungs: Mild pulmonary emphysema. Minimal, scattered ground-glass nodular densities centrilobular distribution most pronounced superior segment right lower lobe. There is no judah airspace consolidation. Suspected mild bronchial wall thickening most pronounced in the lower lobes. Small amount of debris in the trachea. Pleural spaces: No pneumothorax. No pleural effusion. Heart: No cardiomegaly. No pericardial effusion. Lymph nodes: No enlarged lymph nodes. Gallbladder and bile ducts: Cholecystectomy. Bones/joints: No acute fracture or subluxation. Soft tissues: See Tubes, catheters and devices finding. IMPRESSION: 1. Findings suggesting a very minimal pneumonitis or atypical infection. 2. Mild, acute or chronic bronchitis. 3. No pulmonary emboli are seen. 4. Additional findings as described. Dictated and Authenticated by: Carmen Bedoya MD. Ordering:DAGMAR Stanford MD
[2022-07-09 19:58] LABS: Bilirubin Negative (Negative); Blood Negative (Negative); Clarity Clear (Clear); Glucose Negative (Negative); Ketones Negative (Negative); Leukocyte Esterase Negative (Negative); Nitrite Negative (Negative); Specific Gravity 1.015 (1.005-1.025); Urobilinogen 0.2 mg/dL (Up to 0.2)
[2022-07-09 19:59] LABS: Bacteria Negative HPF (Negative); Crystals Negative HPF (Negative); Epithelial Cells Negative HPF (Negative); RBC Negative HPF (0-2); WBC Negative HPF (0-5)
[2022-07-09 20:00] LABS: C & S Indicated? No; Casts Negative LPF (Negative); Mucus Negative (Negative)
[2022-07-09 20:04] VITALS: BP 123/77; PULSE 105; RESP 20; O2SAT 92
--- NOTE | 2022-07-09 20:17 | NUR.NOTE ---
Nursing Note: report to carlo LOPEZ, room 229
[2022-07-09 20:32] VITALS: BP 144/89; PULSE 86; RESP 20; TEMP 36.8; O2SAT 93
[2022-07-09] MEDS: Enoxaparin 30 MG/0.3 ML SYR SC (21:08)
[2022-07-09 21:16] LABS: Troponin I < 50 ng/L (<or=60)
[2022-07-09] MEDS: DOXYCYCLINE 100 MG in Normal Saline 100 ML IVPB (21:20)
[2022-07-09 22:53] VITALS: PULSE 79
--- NOTE | 2022-07-09 23:13 | HPE_ITS ---
Date of service: 07/09/22 Time of Service: 23:13 Assessment and Plan Assessment and plan (1) Shortness of breath: Status: Acute Assessment and plan: Patient has not had formal workup for COPD but has emphysematous changes and bronchial thickening and some nodular ground glass changes. Her elevate pro-BNP and 1+ pedal edema suggests some component of CHF. She has improved w/ lasix but also received solumedrol and multiple DuoNeb treatments. I will get echo in the morning or we could see if [facility] did one when she had her pacer. Continue scheduled DuoNeb qid and start short course of prednisone 40mg daily. Will also treat w/ doxycycline and treat for acute bronchitis. She could benefti from further lasix and I will order another dose in the morning but for now she is comfortable and sleeping. Will ask nursing to request [facility] discharge summary from cardiology. Professional time spent interviewing and examining patient, discussion of goals of care with hospital team (care management, nursing and consulting professionals) was 45 minutes. (2) Third degree heart block: Status: Acute Assessment and plan: s/p recent pacemaker. Will ask for interrogation of pacer in the morning History of Present Illness History of Present Illness Chief Complaint: cough, dyspnea Narrative: 87 yr old female who has hx of 3rd degree AV block who had pacemaker placed at [facility] last week. She presented to the E.D. today w/ dyspnea, and non productive cough but no fever or chills. She presented to the E.D. in acute dyspnea speaking 3 to 4 word sentences, using accessory muscles w/ diffuse wheezing. POCUS exam done by E.D. provider demonstrated bilateral basilar B lines but normal LV function. She was treated w/ DuoNeb aerosols, solumedrol and lasix. Labs demonstrated normal troponin I x two sets but elevated BNP of 1249, CBC no anemia or leukocytosis, d-dimer was elevated at 1200. CTA of the chest did not show PE but demonstrated emphysema, bronchial wall thickening, mild central pulmonary artery prominence, minimal scattered ground glass nodular densities, no cardiomegaly or pleural effusions. Patient has diuresed 600 mL after 20 mg lasix and dyspnea has improved. Repeat troponin I was negative for ACS. Respiratory distress improved and patient now is sleeping and maintaing her oxygen saturation at 93% on 2 lpm. She was admitted on observation for treatment of COPD exacerbation and possilbe CHF from her pulmonary hypertension. We will get echo in the a.m. Consider more diuretics tomorrow. I will put her on prednisone, bronchodilators. She should have formal PFT upon discharge to evaluate her for COPD as she has not had formal evaluation. 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) ENT Ears, Nose, Mouth, and Throat: Reports system reviewed and no additional complaints, except as documented Cardiovascular Cardiovascular: Reports as per HPI, Denies chest pain, Denies chest pain with activity, Reports leg edema, Denies palpitations, Reports dyspnea, Reports dyspnea on exertion and Reports orthopnea Respiratory Respiratory: Denies change in phlegm color, Reports cough, Denies hemoptysis, Denies excessive phlegm production, Reports dyspnea, Reports dyspnea on exertion and Reports wheezing Gastrointestinal Gastrointestinal: Reports system reviewed and no additional complaints, except as documented Genitourinary Genitourinary: Reports system reviewed and no additional complaints, except as documented Musculoskeletal Musculoskeletal: Reports system reviewed and no additional complaints, except as documented Integumentary/Breasts Skin/Breast: Reports system reviewed and no additional complaints, except as documented Neurologic Neurologic: Reports system reviewed and no additional complaints, except as documented and Reports loss of vision (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) Psychiatric Psychiatric: Reports system reviewed and no additional complaints, except as documented Endocrine Endocrine: Reports system reviewed and no additional complaints, except as documented, Reports fatigue and Denies palpitations Hematologic/Lymphatic Hematologic/Lymphatic: Reports system reviewed and no additional complaints, except as documented Allergic/Immunologic Allergic/Immunologic: Reports system reviewed and no additional complaints, except as documented and Reports wheezing PFSH All Active Problems Third degree heart block (Acute) Diarrhea (Acute) Syncope (Chronic) Acute renal insufficiency (Acute) Shortness of breath (Acute) Wheezing (Acute) 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 Status post cataract extraction and insertion of intraocular lens of left eye (Chronic) 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) Myopic macular degeneration of both eyes (Chronic) Glaucoma (Acute) Legal blindness (Acute) Macular degeneration (Acute) Silent myocardial infarction (Acute) Cataracts, bilateral (Acute) Medical History Absolute glaucoma of both eyes Leg cramps Macular degeneration Surgical History Cholecystectomy (~1997) History of cataract surgery History of laser iridotomy Laser surgery eyes Social History Smoking/Tobacco Use Status: Former Tobacco Use Smoking risk assessment performed?: Yes Alcohol Intake: never Drug use: Never Substance use type: does not use Do you feel safe at home: Yes Do you feel safe in your relationship?: Yes Meds Allergies and Home Medications Allergies Allergy/AdvReac Type Severity Reaction Status Date / Time codeine Allergy Severe Hives, GI Unverified 07/09/22 17:12 Upset venom-honey bee Allergy Severe Swelling/Ed Unverified 07/09/22 17:12 [bee venom (honey bee)] terence Home Medications Medication Instructions Recorded Confirmed Type acetaminophen 500 mg tablet 250 - 500 mg PO PRN PRN Pain 07/17/14 07/09/22 History dorzolamide 22.3 mg-timolol 6.8 1 drp ophthalmic (eye) BID 09/20/19 07/09/22 History mg/mL eye drops magnesium oxide 400 mg PO DAILY 09/20/19 07/09/22 History xznoiubfolki-vrfqlkzx-eprpel 1 tab PO DAILY 09/20/19 07/09/22 History tablet (Multivitamin 50 Plus tablet) potassium gluconate 595 mg (99 mg) 99 mg PO DAILY 09/20/19 07/09/22 History tablet amlodipine 5 mg tablet 5 mg PO DAILY 07/08/22 07/09/22 History Exam Const General: cooperative, healthy appearing, comfortable, no acute distress, well developed and well groomed Nutritional Appearance: average body habitus and well nourished Orientation: alert, awake and oriented x3 HENMT Head: normal to inspection, no palpable skull fracture, normocephalic and atraumatic Ears: hearing grossly normal bilaterally General nose exam: external nose normal Face and sinus: normal facial exam Mouth: oral mucosae normal Eyes General: appearance normal, both eyes and all related structures Visual Forde: abnormal by confrontation (she sees only shadows, 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) Alignment and Position: alignment normal Periorbital: periorbital findings normal Eyelids: eyelids normal Conjunctivae: conjunctivae normal Sclera: sclerae normal Neck Neck: normal visual inspection, full ROM, no lymphadenopathy, no meningeal signs, trachea midline, supple and no JVD Thyroid: thyroid normal Carotids: normal carotid upstroke Lymphatic: no lymphadenopathy noted Chest Chest: normal inspection of the chest, normal palpation of entire chest wall and pacemaker Resp Effort & Inspection: normal respiratory effort and able to speak in complete sentences Auscultation: crackles bilaterally in the lower lung forde and no rubs Percussion: percussion normal Tactile Fremitus: tactile fremitus absent Cardio Jugular venous pressure: no JVD Palpation: normal PMI Rate: regular rate Rhythm: regular rhythm Bruits: no abdominal aortic bruits and no carotid bruits Pulses: normal peripheral pulses GI Inspection: normal to inspection Palpation: soft and no hepatosplenomegaly Percussion: normal to percussion Auscultation: normal bowel sounds Back/Spine/Pelvis Cervical Spine: cervical ROM normal Thoracic/Lumbar Spine: thoracic and lumbar spine normal to inspection Skin General skin exam: no rashes or lesions noted Neuro General: patient alert, patient awake and patient oriented x3 Cognition: normal cognition Speech: speech normal Motor: muscle tone normal throughout and strength 5/5 throughout Extrem General: normal to inspection, full ROM, capillary refill normal, no calf tenderness bilaterally and no pedal edema Results Imaging EKG: image reviewed Imaging Studies: Chest CTA: IMPRESSION: 1. No evidence of pulmonary embolism, thoracic aortic dissection or aneurysm.? 2. Small scattered ground-glass densities in the right lower lobe which may represent small airways disease, mild pneumonitis or atypical infection. Labs 07/10/22 05:58 07/10/22 05:58 Labs: Laboratory Results - last 24 hr 07/09/22 07/09/22 07/09/22 17:34 17:34 17:34 WBC 5.04 RBC 3.97 Hgb 12.5 Hct 38.5 MCV 97 H MCH 31.5 MCHC 32.5 RDW 13.2 Plt Count 160 MPV 10.1 Immature Gran % 0.2 Neutrophils % 40.9 Lymphocytes % 46.6 Monocytes % 10.9 Eosinophils % 1.0 Basophils % 0.4 Nucleated RBC % 0.0 Absolute Neutrophils 2.06 Absolute Lymphocytes 2.35 Absolute Monocytes 0.55 Absolute Eosinophils 0.05 Absolute Basophils 0.02 PT INR APTT D-Dimer Sodium 139 Potassium 4.2 Chloride 103 Carbon Dioxide 29.6 Anion Gap 6.4 BUN 16 Creatinine 1.5 H Est GFR (CKD-EPI 2020) 33.94 Glucose 118 H Calcium 8.8 Magnesium 2.1 Cancelled Total Bilirubin 0.5 AST 29 ALT 30 Alkaline Phosphatase 75 Troponin I < 50 NT-Pro-B Natriuret Pep 1249 H Cancelled Total Protein 7.1 Albumin 3.3 L Lipase 47 Urine Color Urine Clarity Urine pH Ur Specific [place] Urine Protein Urine Ketones Urine Blood Urine Nitrite Urine Bilirubin Urine Urobilinogen Ur Leukocyte Esterase Urine RBC Urine WBC Ur Epithelial Cells Urine Crystals Urine Bacteria Urine Casts Urine Mucus Ur Culture Indicated? Urine Glucose COVID-19 Source SARS-CoV-2 (PCR) Influenza Type A (PCR) Influenza Type B (PCR) RSV (PCR) 07/09/22 07/09/22 07/09/22 17:34 17:34 17:45 WBC RBC Hgb Hct MCV MCH MCHC RDW Plt Count MPV Immature Gran % Neutrophils % Lymphocytes % Monocytes % Eosinophils % Basophils % Nucleated RBC % Absolute Neutrophils Absolute Lymphocytes Absolute Monocytes Absolute Eosinophils Absolute Basophils PT 9.8 INR 1.0 APTT 26.9 D-Dimer 1273 H Sodium Potassium Chloride Carbon Dioxide Anion Gap BUN Creatinine Est GFR (CKD-EPI 2020) Glucose Calcium Magnesium Total Bilirubin AST ALT Alkaline Phosphatase Troponin I NT-Pro-B Natriuret Pep Total Protein Albumin Lipase Urine Color Urine Clarity Urine pH Ur Specific [place] Urine Protein Urine Ketones Urine Blood Urine Nitrite Urine Bilirubin Urine Urobilinogen Ur Leukocyte Esterase Urine RBC Urine WBC Ur Epithelial Cells Urine Crystals Urine Bacteria Urine Casts Urine Mucus Ur Culture Indicated? Urine Glucose COVID-19 Source Nasopharynx SARS-CoV-2 (PCR) Negative Influenza Type A (PCR) Negative Influenza Type B (PCR) Negative RSV (PCR) Negative 07/09/22 07/09/22 19:50 20:45 WBC RBC Hgb Hct MCV MCH MCHC RDW Plt Count MPV Immature Gran % Neutrophils % Lymphocytes % Monocytes % Eosinophils % Basophils % Nucleated RBC % Absolute Neutrophils Absolute Lymphocytes Absolute Monocytes Absolute Eosinophils Absolute Basophils PT INR APTT D-Dimer Sodium Potassium Chloride Carbon Dioxide Anion Gap BUN Creatinine Est GFR (CKD-EPI 2020) Glucose Calcium Magnesium Total Bilirubin AST ALT Alkaline Phosphatase Troponin I < 50 NT-Pro-B Natriuret Pep Total Protein Albumin Lipase Urine Color Yellow Urine Clarity Clear Urine pH 6.0 Ur Specific Redbird 1.015 Urine Protein 30 H Urine Ketones Negative Urine Blood Negative Urine Nitrite Negative Urine Bilirubin Negative Urine Urobilinogen 0.2 Ur Leukocyte Esterase Negative Urine RBC Negative Urine WBC Negative Ur Epithelial Cells Negative Urine Crystals Negative Urine Bacteria Negative Urine Casts Negative Urine Mucus Negative Ur Culture Indicated? No Urine Glucose Negative COVID-19 Source SARS-CoV-2 (PCR) Influenza Type A (PCR) Influenza Type B (PCR) RSV (PCR) Last Vital Signs Temp 36.8 C 07/09/22 20:32 Pulse 79 07/09/22 22:53 Resp 20 07/09/22 20:32 BP 144/89 H 07/09/22 20:32 Pulse Ox 93 07/09/22 20:32 Time Spent Time spent with Patient: 40-54 minutes Time was spent: preparing to see the patient(eg.review tests), obtaining and/or reviewing separately otained hiistory, ordering medications,tests, procedures, referring, communicating with other health care asst, indepentently interpreting results, counseling the patient and care coordination
[2022-07-09 23:45] VITALS: BP 152/89; PULSE 83; RESP 20; TEMP 36.9; O2SAT 95
[2022-07-10] VITALS (18 sets, daily range): BP systolic 148–178; BP diastolic 76–86; PULSE 69–94; RESP 2–22; TEMP 36–37.3; O2SAT 90–95
--- NOTE | 2022-07-10 | DI.US_ITS ---
APPROVED REPORT EXAM: Comprehensive 2D, Doppler, and color-flow Echocardiogram Patient Location: In-Patient Room/Bed: 229 Fudger: Mary Berry RDCS (AE) Indications: Dyspnea, Evaluate LV and RV function Other Information Study Quality: Fair. Technically limited study due to body habitus, inability to position patient sca n done supine. Conclusion Normal left ventricular wall thickness and chamber size. Estimated ejection fraction is 55 to 60%. No segmental wall motion abnormalities are identified Normal right ventricular size and systolic function Both atria are normal in size Device lead noted in the right heart There is no structural or hemodynamically significant valvular disease Trivial pericardial effusion Debated right ventricular systolic pressure is 33 mmHg, decreased from 46 mmHg documented at [facility] 07/01/2021 Wall motion Left Ventricle The left ventricle is normal size. The left ventricular systolic function is normal. The left ventric ular ejection fraction is within the normal range. There is normal left ventricular wall thickness. T here is no ventricular septal defect visualized. LVEF is 55%. Right Ventricle The right ventricle is normal size. The right ventricular systolic function is normal. The RVSP is 33 .8 mmHg. Pacemaker lead is present in the right ventricle. Atria The left atrium size is normal. The right atrium size is normal. The interatrial septum is intact wit h no evidence for an atrial septal defect. Aortic Valve Number of aortic valve leaflets could not be assessed. There is no aortic valvular stenosis. No aort ic regurgitation is present. Mitral Valve The mitral valve is normal in structure. No evidence of mitral valve stenosis. Trace mitral regurgita tion. Tricuspid Valve The tricuspid valve is normal in structure. There is no tricuspid valve stenosis. Trace to mild tricu spid regurgitation. Pulmonic Valve The pulmonary valve is normal in structure. There is no pulmonic valvular stenosis. Trace pulmonic re gurgitation. Great Vessels The aortic root is normal in size. Ascending aorta is not well visualized. Aortic arch is not well vi sualized. IVC is normal in size and collapses >50% with inspiration. Pericardium Trace pericardial effusion. 2D Dimensions IVSD d PLAX 1.07 cm F: 0.6-1.0 LV Vol A2C d MOD 80.1 mL LVPW d PLAX 1.05 cm F: 0.6 - 1.0 LV Vol A4C d MOD 85.9 mL LVID d PLAX 4.14 cm F: 3.8 - 5.2 LA vol/ BSA A2C s A-L 25.4 mL/m2 LVDs 3.10 cm F: 2.2 - 3.5 LA vol/ BSA A4C s A-L 16.1 mL/m2 Ao Root d 3.00 cm F: 2.7 - 3.3 LA Vol/ BSA Biplane s A-L 21.8 mL/m2 RA Area A4C 11.21 cm2 LA Area A4C s MOD 12.13 cm2 RA Vol/ BSA A4C s A-L 14.9 mL/m2 LA Area A2C s MOD 16.45 cm2 LV EF Teichholz 49.1 % LV EF A4C MOD 50.1 % LVEF (Bailey's) 50.97 % F: 54 - 74 LV EF A2C MOD 50.6 % LV Volume 66.46 mL F: 46 - 106 LV EF Biplane MOD 51.0 % LV Volume Index 36.71 mL/m2 F: 29 - 61 SV 43.63 mL LV Vol Biplane MOD 85.6 mL SV Index 24.11 mL/m2 FS 24.50 % M-Mode TAPSE 2.11 cm (M/F) >1.7 LV Diastology MV E' medial 0.060 (>0.07 m/s) E/A Ratio 0.5 LV E/e MED 9.85 (<14) MV E Vmax 0.59 (0.4-1.3 m/s) MV E' lateral 0.045 (>0.1 m/s) MV A Vmax 1.15 (0.4-1.3 m/s) LV E/e LAT 13.10 (<14) MV E/A Ratio 0.51 MV E/E' medial 9.90 MV E/E' lateral 13.11 Aortic Valve LVOT Area 2.67 cm2 AoV Area Vmax 2.50 cm2 LVOT Vmax 1.25 m/s AoV Area/ BSA (Vmax) 1.38 cm2/m2 LVOT Mean Pierre. 0.79 m/s [place] Mean Pierre. 2.20 cm2 LVOT Peak Grad 6.2 mmHg [place] Mean Pierre. Index 1.22 cm2/m2 LVOT Mean Grad 3.0 mmHg LVOT VTI 0.267 m LVOT Diam s 1.80 cm AoV Vmax 1.33 m/s Velocity Ratio 0.94 AoV Mean Pierre. 0.96 m/s AoV Peak Grad 7.1 mmHg LVOT SV 71.40 mL AoV Mean Grad 4.1 mmHg AoV VTI 0.254 m AoV Area VTI 2.82 cm2 AoV Area/ BSA (VTI) 1.56 cm/m2 Mitral Valve MV DT 394 (160-240 msec) MV PHT 114 msec MV Area PHT 1.93 cm2 Pulmonary Valve RVOT Peak Gr. 1.22 mmHg RVOT Vmax 0.55 m/s Tricuspid Valve TR Peak Grad 30.7 mmHg TR Vmax 2.77 m/s RA Pressure 3.00 mmHg RVSP (TR) 33.8 mmHg
[2022-07-10] MEDS: Albuterol/Ipratropium 3 ML UPD VIAL UPD ×3 (05:23→17:40)
[2022-07-10 06:44] LABS: Abs Immature Grans 0.01 10^3/uL (0.0-0.06); Absolute Lymphocyte Count 1.58 10^3/uL (1.2-3.4); Absolute Monocyte Count 0.07 10^3/uL (0.1-0.8); Absolute Neutrophil Count 1.67 10^3/uL (1.2-6.7); HCT 36.4 % (36.0-46.0); Immature Grans % 0.3; Lymphocytes % 47.4; MCH 31.2 pg (27.0-33.0); MCV 95 fL (80-95); MPV 10.5 fL (8.0-11.0); Monocytes % 2.1; Neutrophils % 50.2; Platelet Count 187 10^3/uL (130-400); RBC 3.85 10^6/uL (3.93-5.22); RDW 13.2 % (11.7-14.6); RDW-SD 45.7 fL; WBC 3.33 10^3/uL (4.4-10.8)
[2022-07-10 06:59] LABS: Anion Gap 9.3 mmol/L (3-11); BUN 19 mg/dL (7-18); CO2 28.7 mmol/L (21.0-32.0); CREATININE 1.5 mg/dL (0.55-1.02); Calcium 8.8 mg/dL (8.5-10.1); Chloride 102 mmol/L (98-107); Estimated GFR 33.94 (mL/min/1.73m2); Glucose 150 mg/dL (74-106); Magnesium 2.1 mg/dL (1.8-2.4); Potassium 4.1 mmol/L (3.5-5.1); Sodium 140 mmol/L (136-145)
[2022-07-10 07:34] LABS: Procalcitonin < 0.1 ng/mL
[2022-07-10] MEDS: Magnesium Oxide 400 MG TAB PO (09:21)
[2022-07-10] MEDS: predniSONE 20 MG TAB 40 MG PO (09:23)
[2022-07-10] MEDS: amLODIPine 5 MG TAB PO (09:23)
[2022-07-10] MEDS: Multivitamin w/Minerals TAB 1 TAB PO (09:24)
[2022-07-10] MEDS: Doxycycline Hyclate 100 MG CAP PO ×2 (09:26→20:48)
[2022-07-10] MEDS: Furosemide 20 MG/2 ML VIAL IVP ×2 (09:28→15:44)
--- NOTE | 2022-07-10 10:25 | PDOC.CMIN ---
Care Management Initial Assmt Initial Assessment REASON FOR HOSPITALIZATION:: COPD, CHF PREVIOUS FUNCTIONAL STATUS/SOCIAL/FAMILY SUPPORTS:: 87 yr old female who has hx of 3rd degree AV block who had pacemaker placed at [facility] [place] [place] last week, presented to the E.D. in acute dyspnea using accessory muscles w/ diffuse wheezing. Patient has diuresed 600 mL after 20 mg lasix and dyspnea has improved. Repeat troponin I was negative for ACS. Respiratory distress improved and patient now is sleeping and maintaining her oxygen saturation at 93% on 2 lpm. She was admitted on observation for treatment of COPD exacerbation and possilbe CHF from her pulmonary hypertension. POTENTIAL DISCHARGE NEEDS:: Pacer interrogation. 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) Myopic macular degeneration of both eyes (Chronic) Glaucoma (Acute) Legal blindness (Acute) Macular degeneration (Acute) Silent myocardial infarction (Acute) Cataracts, bilateral (Acute) Medical History Absolute glaucoma of both eyes Leg cramps Macular degeneration Surgical History Cholecystectomy (~1997) History of cataract surgery History of laser iridotomy Laser surgery eyes Social History Smoking/Tobacco Use Status: Former Tobacco Use Smoking risk assessment performed?: Yes Alcohol Intake: never Drug use: Never Substance use type: does not use Do you feel safe at home: Yes Do you feel safe in your relationship?: Yes
--- NOTE | 2022-07-10 10:50 | W.PM.PROGNOT ---
Date of Service Date of service: 07/10/22 Time of Service: 10:50 Assessment and Plan Assessment and plan (1) Shortness of breath: Status: Acute Assessment and plan: Emphysematous changes and bronchial thickening and some nodular ground glass changes to her lungs. Elevated pro-BNP and 1+ pedal edema suggests some component of CHF. Improved w/ lasix but also received solumedrol and multiple DuoNeb treatments. Echo pending Continue scheduled DuoNeb qid and start short course of Prednisone 40mg daily. Doxycycline and treat for acute bronchitis. [place] [facility] [place]2) Third degree heart block: Assessment and plan: s/p recent pacemaker. Will ask for interrogation of pacer in the morning (3) DVT prophylaxis: Status: Deleted Assessment and plan: Enoxaparin (4) Discharge planning issues: Status: Deleted Assessment and plan: Home when stable with resumption of Nursing and PT Discussed with Dr Anaya Subjective Subjective Patient reports: no new complaints, tolerating a regular diet, voiding w/o difficulty and afebrile; denies diarrhea, nausea, vomiting or shortness of breath Exam Const General: cooperative, healthy appearing, comfortable, no acute distress, well developed and well groomed Nutritional Appearance: average body habitus and well nourished Orientation: alert, awake and oriented x3 HENMT Head: normal to inspection, no palpable skull fracture, normocephalic and atraumatic Ears: hearing grossly normal bilaterally General nose exam: external nose normal Face and sinus: normal facial exam Mouth: oral mucosae normal Eyes General: appearance normal, both eyes and all related structures Visual Hendricks: abnormal by confrontation (she sees only shadows, 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) Alignment and Position: alignment normal Periorbital: periorbital findings normal Eyelids: eyelids normal Conjunctivae: conjunctivae normal Sclera: sclerae normal Neck Neck: normal visual inspection, full ROM, no lymphadenopathy, no meningeal signs, trachea midline, supple and no JVD Thyroid: thyroid normal Carotids: normal carotid upstroke Lymphatic: no lymphadenopathy noted Chest Chest: normal inspection of the chest, normal palpation of entire chest wall and pacemaker Resp Effort & Inspection: normal respiratory effort and able to speak in complete sentences Auscultation: crackles bilaterally in the lower lung hendricks and no rubs Percussion: percussion normal Tactile Fremitus: tactile fremitus absent Cardio Jugular venous pressure: no JVD Palpation: normal PMI Rate: regular rate Rhythm: regular rhythm Bruits: no abdominal aortic bruits and no carotid bruits Pulses: normal peripheral pulses GI Inspection: normal to inspection Palpation: soft and no hepatosplenomegaly Percussion: normal to percussion Auscultation: normal bowel sounds Back/Spine/Pelvis Cervical Spine: cervical ROM normal Thoracic/Lumbar Spine: thoracic and lumbar spine normal to inspection Skin General skin exam: no rashes or lesions noted Neuro General: patient alert, patient awake and patient oriented x3 Cognition: normal cognition Speech: speech normal Motor: muscle tone normal throughout and strength 5/5 throughout Extrem General: normal to inspection, full ROM, capillary refill normal, no calf tenderness bilaterally and no pedal edema Objective Last Vital Signs Temp 36.6 C 07/10/22 08:15 Pulse 81 07/10/22 08:15 Resp 16 07/10/22 08:15 BP 168/82 H 07/10/22 08:15 Pulse Ox 94 07/10/22 08:15 Laboratory Results - last 24 hr 07/09/22 07/09/22 07/09/22 17:34 17:34 17:34 WBC 5.04 RBC 3.97 Hgb 12.5 Hct 38.5 MCV 97 H MCH 31.5 MCHC 32.5 RDW 13.2 Plt Count 160 MPV 10.1 Immature Gran % 0.2 Neutrophils % 40.9 Lymphocytes % 46.6 Monocytes % 10.9 Eosinophils % 1.0 Basophils % 0.4 Nucleated RBC % 0.0 Absolute Neutrophils 2.06 Absolute Lymphocytes 2.35 Absolute Monocytes 0.55 Absolute Eosinophils 0.05 Absolute Basophils 0.02 PT INR APTT D-Dimer Sodium 139 Potassium 4.2 Chloride 103 Carbon Dioxide 29.6 Anion Gap 6.4 BUN 16 Creatinine 1.5 H Est GFR (CKD-EPI 2020) 33.94 Glucose 118 H Calcium 8.8 Magnesium 2.1 Cancelled Total Bilirubin 0.5 AST 29 ALT 30 Alkaline Phosphatase 75 Troponin I < 50 NT-Pro-B Natriuret Pep 1249 H Cancelled Total Protein 7.1 Albumin 3.3 L Lipase 47 Procalcitonin Urine Color Urine Clarity Urine pH Ur Specific [place] Urine Protein Urine Ketones Urine Blood Urine Nitrite Urine Bilirubin Urine Urobilinogen Ur Leukocyte Esterase Urine RBC Urine WBC Ur Epithelial Cells Urine Crystals Urine Bacteria Urine Casts Urine Mucus Ur Culture Indicated? Urine Glucose COVID-19 Source SARS-CoV-2 (PCR) Influenza Type A (PCR) Influenza Type B (PCR) RSV (PCR) 07/09/22 07/09/22 07/09/22 17:34 17:34 17:45 WBC RBC Hgb Hct MCV MCH MCHC RDW Plt Count MPV Immature Gran % Neutrophils % Lymphocytes % Monocytes % Eosinophils % Basophils % Nucleated RBC % Absolute Neutrophils Absolute Lymphocytes Absolute Monocytes Absolute Eosinophils Absolute Basophils PT 9.8 INR 1.0 APTT 26.9 D-Dimer 1273 H Sodium Potassium Chloride Carbon Dioxide Anion Gap BUN Creatinine Est GFR (CKD-EPI 2020) Glucose Calcium Magnesium Total Bilirubin AST ALT Alkaline Phosphatase Troponin I NT-Pro-B Natriuret Pep Total Protein Albumin Lipase Procalcitonin Urine Color Urine Clarity Urine pH Ur Specific [place] Urine Protein Urine Ketones Urine Blood Urine Nitrite Urine Bilirubin Urine Urobilinogen Ur Leukocyte Esterase Urine RBC Urine WBC Ur Epithelial Cells Urine Crystals Urine Bacteria Urine Casts Urine Mucus Ur Culture Indicated? Urine Glucose COVID-19 Source Nasopharynx SARS-CoV-2 (PCR) Negative Influenza Type A (PCR) Negative Influenza Type B (PCR) Negative RSV (PCR) Negative 07/09/22 07/09/22 07/10/22 19:50 20:45 05:58 WBC RBC Hgb Hct MCV MCH MCHC RDW Plt Count MPV Immature Gran % Neutrophils % Lymphocytes % Monocytes % Eosinophils % Basophils % Nucleated RBC % Absolute Neutrophils Absolute Lymphocytes Absolute Monocytes Absolute Eosinophils Absolute Basophils PT INR APTT D-Dimer Sodium 140 Potassium 4.1 Chloride 102 Carbon Dioxide 28.7 Anion Gap 9.3 BUN 19 H Creatinine 1.5 H Est GFR (CKD-EPI 2020) 33.94 Glucose 150 H Calcium 8.8 Magnesium 2.1 Total Bilirubin AST ALT Alkaline Phosphatase Troponin I < 50 NT-Pro-B Natriuret Pep Total Protein Albumin Lipase Procalcitonin Urine Color Yellow Urine Clarity Clear Urine pH 6.0 Ur Specific [place] 1.015 Urine Protein 30 H Urine Ketones Negative Urine Blood Negative Urine Nitrite Negative Urine Bilirubin Negative Urine Urobilinogen 0.2 Ur Leukocyte Esterase Negative Urine RBC Negative Urine WBC Negative Ur Epithelial Cells Negative Urine Crystals Negative Urine Bacteria Negative Urine Casts Negative Urine Mucus Negative Ur Culture Indicated? No Urine Glucose Negative COVID-19 Source SARS-CoV-2 (PCR) Influenza Type A (PCR) Influenza Type B (PCR) RSV (PCR) 07/10/22 07/10/22 05:58 05:58 WBC 3.33 L RBC 3.85 L Hgb 12.0 Hct 36.4 MCV 95 MCH 31.2 MCHC 33.0 RDW 13.2 Plt Count 187 MPV 10.5 Immature Gran % 0.3 Neutrophils % 50.2 Lymphocytes % 47.4 Monocytes % 2.1 Eosinophils % 0.0 Basophils % 0.0 Nucleated RBC % 0.0 Absolute Neutrophils 1.67 Absolute Lymphocytes 1.58 Absolute Monocytes 0.07 L Absolute Eosinophils 0.00 Absolute Basophils 0.00 PT INR APTT D-Dimer Sodium Potassium Chloride Carbon Dioxide Anion Gap BUN Creatinine Est GFR (CKD-EPI 2020) Glucose Calcium Magnesium Total Bilirubin AST ALT Alkaline Phosphatase Troponin I NT-Pro-B Natriuret Pep Total Protein Albumin Lipase Procalcitonin < 0.1 Urine Color Urine Clarity Urine pH Ur Specific [place] Urine Protein Urine Ketones Urine Blood Urine Nitrite Urine Bilirubin Urine Urobilinogen Ur Leukocyte Esterase Urine RBC Urine WBC Ur Epithelial Cells Urine Crystals Urine Bacteria Urine Casts Urine Mucus Ur Culture Indicated? Urine Glucose COVID-19 Source SARS-CoV-2 (PCR) Influenza Type A (PCR) Influenza Type B (PCR) RSV (PCR) Time Spent with Patient Time Spent with Patient: 25-34 minutes Time was spent: preparing to see the patient(eg.review tests), obtaining and/or reviewing separately otained hiistory, ordering medications,tests, procedures, referring, communicating with other health early breastfeeding care specialist and indepentently interpreting results
--- NOTE | 2022-07-10 12:46 | CMDISCH_ITS ---
Date of service: 07/10/22 Time of Service: 12:46 LACE Index Scoring Tool Questions: Length of Stay (in days): 1 Was the patient admitted via the E.D.?: Yes E.D. Visits: 1 Answers: Total Score: 5 Risk of Readmission: Low Risk Care Management Discharge Plan Reason for Hospitalization: COPD and CHF Discharge Plan: Kristin will return home when ready per MD. She will resume [facility] SN[facility]PT through [facility]; CM notified. She will transport via private vehicle with tonio mayers. Patient/Family Education Needs: Review discharge instructions, discuss Ask Me Three. Services Needed at Discharge: Home Health Care Services (Resumption)
--- NOTE | 2022-07-10 14:19 | PT.INNT ---
Date of service: 07/10/22 Time of Service: 14:16 PT Notes Visit Reasons: COPD Exacerbation Patient declines to work with PT this afternoon, stating she worked with PT this morning, had an ECHO, and has had lunch, and is now sleepy and wishes to be left alone. States that she does have 2 walkers at home that she can use, does not require any additional DME to return home.
--- NOTE | 2022-07-10 15:03 | IN_ITS ---
Date of service: 07/10/22 Time of Service: 08:42 PT Notes Visit Reasons: COPD Exacerbation Physical Therapy Inpatient Initial Evaluation Date: 07/10/2022 Referring Doctor: Pedro Escobar MD PT Orders: PT CONSULT: Fall safety assessment Precautions: Fall. Standard. Activity as tolerated. Patient Profile/Admitting Diagnosis: Kristin is an 87-year-old female admitted for close monitoring of shortness of breath, third-degree heart S/P recent pacemaker placement. PMHX: All Active Problems? 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 Absolute glaucoma of both eyes Leg cramps Macular degeneration Surgical History? Cholecystectomy (~1997) History of cataract surgery History of laser iridotomy Laser surgery eyes Social History/Home Situation: Independent with all mobility ADLs using FWW. Lives alone in a private home with 3 step to enter. Has a son and son's family who live close by and can help as needed. Has emergency medical alert device but has not needed to use since she acquired it 3 years ago. Equipment Owned/DME: FWW Subjective: Feels tired and reports some restriction in her L UE per surgeon from recent pacemaker placement. Agreeable to trying out walking with FWW as she does not feel safe without it right now. Objective: General Observation: Supine in bed. Mental Status: Alert and oriented as to person, place, time, and purpose. Able to pay attention, focus, and respond appropriately. Pain: 1-2/10 in L shoulder and chest due to most recent surgery Vital Signs: Closely monitored by nursing staff. BP 170s/90s mmHg, HR 86 bpm, O2 sat above 90% on 2 L/minute ROM: Right Upper Extremity: Shoulder Flexion WFL. Shoulder abduction WFL. Elbow flexion WFL. Wrist flexion WFL. Functional opening and closing of hand WFL. Left Upper Extremity: Shoulder Flexion to 90 de only due to restriction. Shoulder abduction to 90 degrees only due to restriction. Elbow flexion WFL. Wrist flexion WFL. Functional opening and closing of hand WFL. Right Lower Extremity: Hip flexion WFL. Hip abduction WFL. Knee flexion WFL. Ankle dorsiflexion WFL. Ankle plantarflexion WFL. Left Lower Extremity: Hip flexion WFL. Hip abduction WFL. Knee flexion WFL. Ankle dorsiflexion WFL. Ankle plantarflexion WFL. Strength: Right Upper Extremity: Shoulder flexors 4/5. Shoulder abductors 4/5. Elbow flexors 4/5. Elbow extensors 4/5. Captain Assistant strong. Left Upper Extremity: Shoulder flexors NT. Shoulder abductors NT. Elbow flexors 4/5. Elbow extensors 4/5. Captain Assistant strong. Right Lower Extremity: Hip flexors 4/5. Hip abductors 4/5. Knee flexors 4/5. Knee extensors 4/5. Ankle dorsiflexors 4/5. Ankle plantarflexors 4/5. Left Lower Extremity: Hip flexors 4/5. Hip abductors 4/5. Knee flexors 4/5. Knee extensors 4/5. Ankle dorsiflexors 4/5. Ankle plantarflexors 4/5. Bed Mobility/Transfers: Supine to sit independent Sit to supine independent Sit to stand supervision with FWW Bed to reclining chair supervision with FWW Gait: Instructed patient with level surface ambulation of 100 feet requiring stand by assist. Cherelle decreased. Mild SOB that resolved with rest. No LOB. Oxygen saturation stayed above 90% on 2 L/min via NC. Balance: Static Sitting: Normal Dynamic Sitting: Normal Static Standing: Fair Dynamic Standing: Fair Special Tests: Mobility Limitations Standardized Measure [facility] AM-PAC 6 clicks Basic Mobility Inpatient Short Form: Raw Score: 23 CMS Score: 11% deficit Informed Consent/Education: Patient was instructed in purpose of PT consult and plan of care. Agreeable to proceed with established PT POC to achieve personal goals. Assessment: Patient presents with clinical signs and symptoms consistent with current/admitting diagnoses that have resulted to mobility limitations, gait instability, generalized weakness, and overall ADL decline as demonstrated by the following impairment level findings: 1. Impaired sitting/standing balance 2. Impaired activity tolerance 3. Limitation of joint range of motion in L shoulder due to postoperative status 4. Shortness of breath and fatigue that resolved with rest Impairments are contributing to the following functional limitations: 1. Decline in bed mobility skills 2. Decline in transfer skills 3. Difficulty with ambulation without assistive device and physical assistance 4. Increased completion time for mobility ADL performance 5. Increased risk for falls 6. Difficulty with managing steps alone safely Patient is assessed as a 10213 moderate complexity based on the following: History: 87-year-old female with past medical history as indicated above Examination: Demonstrable impairment in strength, balance, and mobility level with underlying impairments and functional limitations as exhibited above as well as deficit score of 11% utilizing the [facility] Mobility Inpatient Short Form Presentation: Stable Decision Makin moderate complexity Goals: Goals X1 week 1. Supine-Sit independent 2. Sit-Supine independent 3. Sit-Stand independent 4. Stand-Sit independent with FWW 5. Bed-Chair independent with FWW 6. Chair-Bed independent with FWWFWW 7. Independent gait on level surface with use of FWW for at least 100 feet without report of pain nor dyspnea 8. Independent stair negotiation while holding onto B rails for at least 3 steps without report of pain nor dyspnea 9. Independent with home exercise program 10. Good static and dynamic standing balance/tolerance Plan of Care/Treatment Plan: 1-2x/day, 7 days/week x 1 week. Plan of care has been reviewed with the [employer] HELPER MACHINE providing the service under Physical Therapy direction. Initiate Physical Therapy intervention for pain management as needed, strengthening, bed mobility, transfers, gait, stairs, balance training, and use of assistive device. DISCHARGE RECOMMENDATIONS: [] Home with no services [] [X] Home with services. Patient will benefit from home health PT services in order to progress mobility level using least restrictive assistive ambulatory device, assess home safety, identify additional equipment needs, and establish a functional maintenance program that will increase ability of patient to remain at home. [] Home with outpatient PT [] [] SNF for continued rehabilitation [] [] Optometrist Care [] [] SNF versus LTC based on ability to participate and progress [] TREATMENT CODE/TIME: 93575 x 20 minutes, 95570 x 18 minutes beginning at 8:42 AM. Thank you for the opportunity to participate in the care of this patient. Crystal Matthews PT, DPT, CLT [facility] [place], [place]
[2022-07-10] MEDS: Normal Saline Flush 10 ML SYR IVP ×2 (15:45→20:50)
[2022-07-10] MEDS: Enoxaparin 30 MG/0.3 ML SYR SC (20:48)
[2022-07-11 06:11] VITALS: PULSE 90; RESP 16; RESP 4; RESP 8; O2SAT 94
[2022-07-11] MEDS: Albuterol/Ipratropium 3 ML UPD VIAL UPD (06:11)
[2022-07-11 06:19] VITALS: PULSE 85; RESP 20; RESP 4; RESP 8; O2SAT 96
[2022-07-11] MEDS: Normal Saline Flush 10 ML SYR IVP (06:32)
[2022-07-11 07:00] VITALS: PULSE 85
[2022-07-11 07:22] LABS: Abs Immature Grans 0.04 10^3/uL (0.0-0.06); Absolute Basophil Count 0.01 10^3/uL (0.0-0.2); Absolute Lymphocyte Count 3.08 10^3/uL (1.2-3.4); Absolute Monocyte Count 0.73 10^3/uL (0.1-0.8); Absolute Neutrophil Count 3.57 10^3/uL (1.2-6.7); Basophils % 0.1; HCT 35.5 % (36.0-46.0); HGB 11.6 g/dL (11.2-15.7); Immature Grans % 0.5; Lymphocytes % 41.5; MCHC 32.7 % (32.0-36.0); MCV 95 fL (80-95); MPV 10.2 fL (8.0-11.0); Monocytes % 9.8; Neutrophils % 48.1; Platelet Count 207 10^3/uL (130-400); RBC 3.74 10^6/uL (3.93-5.22); RDW 13.3 % (11.7-14.6); RDW-SD 46.2 fL; WBC 7.43 10^3/uL (4.4-10.8)
[2022-07-11 07:30] LABS: Anion Gap 8.8 mmol/L (3-11); BUN 27 mg/dL (7-18); CO2 31.2 mmol/L (21.0-32.0); CREATININE 1.6 mg/dL (0.55-1.02); Calcium 8.3 mg/dL (8.5-10.1); Chloride 104 mmol/L (98-107); Estimated GFR 31.41 (mL/min/1.73m2); Glucose 96 mg/dL (74-106); Magnesium 2.2 mg/dL (1.8-2.4); Potassium 3.6 mmol/L (3.5-5.1); Sodium 144 mmol/L (136-145)
[2022-07-11 07:41] VITALS: BP 140/85; PULSE 83; RESP 18; TEMP 36.6; O2SAT 94
--- NOTE | 2022-07-11 08:11 | PT.INTREAT ---
Date of service: 07/11/22 Time of Service: 07:50 PT Notes Visit Reasons: COPD Exacerbation Inpatient Physical Therapy Treatment Note [facility] Date: 07/11/2022 PRECAUTIONS: Fall, Standard, Activity as tolerated, Recent pacemaker placement SUBJECTIVE: Stated she is hoping to go home later today. Being careful not to move left UE too much. Not concerned with getting into her entrance steps when she get home. OBJECTIVE: PAIN: No pain and overall is feeling pretty good. BED MOBILITY/TRANSFERS Bed mobility with nursing staff. Up in chair waiting, for breakfast when I arrived. Sit to stand supervision with FWW Stand to sit with supervision with FWW Gait: Instructed patient with level surface ambulation of 150 feet, receiving stand by assist. Slow controlled gait pattern with FWW.? Mild SOB that resolved with rest.? No LOB.? Oxygen saturation stayed above 91% on 2 L/min via NC. Balance: Static Sitting: Normal Dynamic Sitting: Normal Static Standing: Fair Dynamic Standing: Fair ASSESSMENT: Tolerated ambulation very well, with good resolve of mild SOB post ambulation. PLAN: Continue with PT's POC, with possible DC from hospital later today. TREATMENT CODE/TIME: [id number], 7:50 to 8:10
[2022-07-11] MEDS: Magnesium Oxide 400 MG TAB PO (09:09)
[2022-07-11] MEDS: Multivitamin w/Minerals TAB 1 TAB PO (09:09)
[2022-07-11] MEDS: predniSONE 20 MG TAB 40 MG PO (09:09)
[2022-07-11] MEDS: Doxycycline Hyclate 100 MG CAP PO (09:10)
[2022-07-11] MEDS: amLODIPine 5 MG TAB PO (09:10)
--- NOTE | 2022-07-11 10:23 | W.PM.DS.N ---
Date of service: 07/11/22 Time of Service: 10:23 DS: Diagnosis Discharge Diagnosis (1) Shortness of breath: Status: Acute (2) Third degree heart block: (3) DVT prophylaxis: Status: Deleted (4) Discharge planning issues: Status: Deleted Discharge Plan Disposition Patient Disposition: Home Condition: Improving Discharge Details Reason For Visit: COPD Exacerbation Admit Date/Time: 07/09/22 19:35 Admit Provider: Pedro Corley Attending Provider: Pedro Corley Primary Care Provider: Clarke Song Hospital Course Hospital Course: This is an 87 yr old female who has pmhx of 3rd degree AV block who had pacemaker placed at [facility] last week. She presented to the [facility] w/ dyspnea, and non productive cough but no fever or chills, with acute dyspnea speaking 3 to 4 word sentences, using accessory muscles w/ diffuse wheezing. She was treated w/ DuoNeb aerosols, solumedrol and lasix in the ED. Labs demonstrated normal troponin I x two, however she had an elevated BNP of 1249, CBC no anemia or leukocytosis, d-dimer was elevated at 1200. CTA of the chest did not show PE? but demonstrated emphysema, bronchial wall thickening, mild central pulmonary artery prominence, minimal scattered ground glass nodular densities, no cardiomegaly or pleural effusions. Patient has diuresed after 20 mg lasix and dyspnea had improved. Repeat troponin I was negative for ACS. Respiratory distress improved and her oxygen saturation was 93% on 2 lpm. She was admitted on observation for treatment of COPD exacerbation and possilbe CHF from her pulmonary hypertension. She was started on prednisone and bronchodilators. She should have formal PFT upon discharge to evaluate her for COPD as she has not had formal evaluation. She had an echo, normal ventricular function and EF of 55-60%. She improved quickly and kept SPO2 greater than 90% on room air. She is discharted with a prednisone taper with referral to pulmonology, Home Meds and New Rx's Prescriptions: New prednisone 10 mg tablet See Taper PO DIRECTED Qty: 30 0RF Taper: Prednisone 10mg taper 40 mg Daily for 3 Days and 0 Hour 30 mg Daily for 3 Days and 0 Hour 20 mg Daily for 3 Days and 0 Hour 10 mg Daily for 3 Days and 0 Hour 5 mg Daily for 3 Days and 0 Hour Rx Instructions: see taper instructions Continued amlodipine 5 mg tablet 5 mg PO DAILY Rx Instructions: 07/03/22-rx'd by [facility] upon discharge following pacemaker placement/pps acetaminophen 500 MG tablet 250 - 500 mg PO PRN PRN (Reason: Pain) dorzolamide-timolol 22.3-6.8 mg/mL Drops 1 drp OPHTHALMIC (EYE) BID Multivitamin 50 Plus Tablet 1 tab PO DAILY potassium gluconate 595 mg (99 mg) Tablet 99 mg PO DAILY magnesium oxide 400 mg magnesium Capsule 400 mg PO DAILY Discharge Instructions Instructions: Doxycycline (By mouth), Prednisone (By mouth), Chronic Lung Disease and Infection Prevention (DC) Additional Instructions: Keep your appointment with Cardiology at [facility] on Wednesday. They will determine if you need to be put on diuretics. Follow up with your PCP regarding the findings on your chest CT. Recommend referral to pulmonology for further testing. Take doxycline, an antibiotic, twice a day for 4 days. Take prednisone taper as directed on the bottle. Home Health Services nursing and PT will resume care. Stand Alone Forms: Nursing Discharge Form Referrals: CARDIOLOGY,[facility] [OTHER] - (Keep your appointment on Wednesday07/13/2022) Clarke Song NP [Primary Care Provider] - (Please call [phone] to make an Appointment in the next 1-2 weeks) Loida Flores MD [ [facility] STAFF PHYSICIAN] - (Please call [phone] to make an Appintment in the next 1-2 weeks) Activity:: Activity as Tolerated Equipment/Supplies:: No Equipment Needed Diet:: Low Sodium Discharge Orders Discharge Orders: Discharge Order (Routine); Ordered 07/11/22 Ordered By: Louisa Win Discharge Data Discharge Date/Time-TO BE ENTERED AT DEPARTURE: 07/11/22 12:47 DS: Summary Time Spent with Patient providing and/or coordinating discharge services: Greater than 30 minutes Status at Discharge Functional status at discharge: uses cane/walker Overall status at discharge: patient is back to baseline Mental Status: mental status grossly normal Speech and Movement: speech and movement normal Mood: congruent mood Affect: normal affect Exam Const General: cooperative, healthy appearing, comfortable, no acute distress, well developed and well groomed Nutritional Appearance: average body habitus and well nourished Orientation: alert, awake and oriented x3 HENMT Head: normal to inspection, normocephalic and atraumatic Ears: hearing grossly normal bilaterally General nose exam: external nose normal Face and sinus: normal facial exam Mouth: oral mucosae normal Eyes General: appearance normal, both eyes and all related structures Visual Hendricks: abnormal by confrontation (she sees only shadows, 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) Alignment and Position: alignment normal Periorbital: periorbital findings normal Eyelids: eyelids normal Conjunctivae: conjunctivae normal Sclera: sclerae normal Neck Neck: normal visual inspection, full ROM, no lymphadenopathy, no meningeal signs, trachea midline, supple and no JVD Thyroid: thyroid normal Carotids: normal carotid upstroke Lymphatic: no lymphadenopathy noted Chest Chest: normal inspection of the chest, normal palpation of entire chest wall and pacemaker Resp Effort & Inspection: normal respiratory effort and able to speak in complete sentences Auscultation: clear to auscultation bilaterally Cardio Jugular venous pressure: no JVD Palpation: normal PMI Rate: regular rate Rhythm: regular rhythm Bruits: no abdominal aortic bruits and no carotid bruits Pulses: normal peripheral pulses GI Inspection: normal to inspection Palpation: soft Auscultation: normal bowel sounds Back/Spine/Pelvis Thoracic/Lumbar Spine: thoracic and lumbar spine normal to inspection Skin General skin exam: no rashes or lesions noted Neuro General: patient alert, patient awake and patient oriented x3 Cognition: normal cognition Speech: speech normal Motor: muscle tone normal throughout and strength 5/5 throughout Extrem General: normal to inspection, full ROM, capillary refill normal, no calf tenderness bilaterally and no pedal edema Psych Mental Status: mental status grossly normal Speech and Movement: speech and movement normal Mood: congruent mood Affect: normal affect DS: Data Vitals/I&O Vitals and I&O: Vital Signs Temperature 36.6 C 07/11/22 07:41 Temperature Source Tympanic 07/11/22 07:41 Pulse 83 07/11/22 07:41 Pulse Rhythm Regular 07/11/22 09:06 Respiratory Rate 18 07/11/22 07:41 Respiratory Effort Normal, Non-Labored 07/11/22 09:06 Respiratory Depth Normal 07/11/22 09:06 Respiratory Pattern Normal 07/11/22 09:06 Blood Pressure 140/85 07/11/22 07:41 Pulse Oximetry 94 07/11/22 07:41 Oxygen Delivery Method Nasal Cannula 07/11/22 07:41 Oxygen Flow Rate 1 07/11/22 07:41 Pain Level 0 07/11/22 07:41 Comment pt states I'm actually feeling much better right now. Pt tachypnic post stand pivot from stretcher to bedside. 07/09/22 20:32 Intake & Output 07/10/22 07/10/22 07/11/22 11:59 23:59 11:59 Intake Total 300 / 300 460 / 460 Output Total 600 / 1150 550 / 1150 Balance -300 / -850 -550 / -850 445 / 445 Weight 78 kg 76.476 kg Intake: IV 60 / 60 Oral 300 / 300 400 / 400 Output: Urine 600 / 1150 550 / 1150 Blood Other: Urine Color Yellow Pale Yellow Urine Appearance Clear Clear Clear Urine Odor None Strong Voiding Methods Bedside Commode Bedside Commode Data Completed and Pending Labs on day of discharge: Labs from last 24 hours 07/11/22 07/11/22 06:30 06:30 WBC 7.43 RBC 3.74 L Hgb 11.6 Hct 35.5 L MCV 95 MCH 31.0 MCHC 32.7 RDW 13.3 Plt Count 207 MPV 10.2 Immature Gran % 0.5 Neutrophils % 48.1 Lymphocytes % 41.5 Monocytes % 9.8 Eosinophils % 0.0 Basophils % 0.1 Nucleated RBC % 0.0 Absolute Neutrophils 3.57 Absolute Lymphocytes 3.08 Absolute Monocytes 0.73 Absolute Eosinophils 0.00 Absolute Basophils 0.01 Sodium 144 Potassium 3.6 Chloride 104 Carbon Dioxide 31.2 Anion Gap 8.8 BUN 27 H Creatinine 1.6 H Est GFR (CKD-EPI 2020) 31.41 Glucose 96 Calcium 8.3 L Magnesium 2.2 PFSH All Active Problems (Updated 07/12/22 @ 00:15 by DIANE REINA) Diarrhea (Acute) Syncope (Chronic) Acute renal insufficiency (Acute) Shortness of breath (Acute) Wheezing (Acute) 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 Status post cataract extraction and insertion of intraocular lens of left eye (Chronic) 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) Myopic macular degeneration of both eyes (Chronic) Glaucoma (Acute) Legal blindness (Acute) Macular degeneration (Acute) Silent myocardial infarction (Acute) Cataracts, bilateral (Acute) Medical History Absolute glaucoma of both eyes Leg cramps Macular degeneration Surgical History Cholecystectomy (~1997) History of cataract surgery History of laser iridotomy Laser surgery eyes Social History Smoking/Tobacco Use Status: Former Tobacco Use Smoking risk assessment performed?: Yes Alcohol Intake: never Drug use: Never Substance use type: does not use Do you feel safe at home: Yes Do you feel safe in your relationship?: Yes Time Spent with Patient Time Spent with Patient: 45-69 minutes Time was spent: preparing to see the patient(eg.review tests), ordering medications,tests, procedures, referring, communicating with other health childcare director, indepentently interpreting results, counseling the patient and care coordination
[2022-07-11 11:13] VITALS: BP 158/80; PULSE 76; RESP 18; TEMP 35.7; O2SAT 93
--- NOTE | 2022-07-11 11:47 | PT.INTREAT ---
Date of service: 07/11/22 Time of Service: 07:50 PT Notes Visit Reasons: COPD Exacerbation Inpatient Physical Therapy Treatment Note [facility] Date: 07/11/2022 TREATMENT CODE/TIME: []
== END 2022-07-11 12:47 | disposition home or self-care (01) ==
LOC: ER 19:47 → MS 07-10 08:52
PROVIDERS: Nurse Practitioner Family; Admitting Provider Internal Medicine; Emergency Provider Emergency Medicine; PCP Nurse Practitioner Family; Visit Provider Internal Medicine
DX: J44.1 Chronic obstructive pulmonary disease with (acute) exacerbation (principal); R06.02 Shortness of breath; I44.2 Atrioventricular block, complete; Z95.0 Presence of cardiac pacemaker; R05.1 Acute cough; H40.1130 Primary open-angle glaucoma, bilateral, stage unspecified; H35.30 Unspecified macular degeneration; H54.8 Legal blindness, as defined in USA; Z87.891 Personal history of nicotine dependence; I25.2 Old myocardial infarction; Z20.822 Contact with and (suspected) exposure to COVID-19; Z79.899 Other long term (current) drug therapy
CPT/HCPCS: 36415; 71275; 80048; 80053; 83690; 84145; 87637; 93005; 96365; 96366; 96372; 96374; 96375; 97162; 97530; 99285; 71045; 81003; 81015; 83735; 83880; 84484; 85025; 85379; 85610; 85730; 93010; 93306; 94640; 94760; 99223; 99232; 99239; G0378; J1650; J1941; J2930; J3490; J7512; J7613; J7620

== ENCOUNTER 2022-08-14 03:00 | Outpatient (CLI) | payer MEDICARE, OTHER, SELFPAY ==
[2022-08-14] MEDS: Albuterol HFA 18 GM 200 PUFF INH IH (14:14)
[2022-08-14] MEDS: Inhaler, Assist Device 1 EACH MC (14:15)
--- NOTE | 2022-08-14 15:23 | PFT_ITS ---
Date of service: 08/14/22 Time of Service: 13:18 Pulmonary Function Test Result Indications: Dyspnea on exertion Interpretation Spirometry: There is mild airflow limitation. There is a significant bronchodilator r esponse. Lung Volumes: There is air trapping Diffusion Capacity: Decreased diffusion Airway Pressure: Increased airways resistance Impression Mild airflow obstruction with a bronchodilator effect, increased airways resistance, air trapping and a decreased diffusion. This could represent COPD with emphysema or Asthma-COPD overlap syndrome in the correct clinical setting. Clinical Correlation therefore is recommended.
== END 2022-08-14 03:01 | disposition home or self-care (01) ==
LOC: RT 03:00
PROVIDERS: PCP Nurse Practitioner Family; Visit Provider Nurse Practitioner Family
DX: R06.02 Shortness of breath (principal)
CPT/HCPCS: 94060; 94726; 94729

== ENCOUNTER 2024-05-24 02:03 | Outpatient (CLI) | payer MEDICARE, OTHER, SELFPAY ==
--- NOTE | 2024-05-24 14:30 | DI.US_ITS ---
APPROVED REPORT EXAM: Comprehensive 2D, Doppler, and color-flow Echocardiogram Patient Location: Out-Patient Fitter Placer: Cyril Erwin RDCS (AE) Indications: Pacemaker, silent myocardial infarction Conclusion Mild concentric left ventricular hypertrophy. Ejection fraction is 55%. Septal motion is consistent with paced rhythm Normal right ventricular size and function Both atria are normal in size Device lead noted in the right heart There are no structural valvular abnormalities Estimated right ventricular systolic pressure is 26 mmHg Wall motion Left Ventricle The left ventricle is normal size. The left ventricular systolic function is normal. The left ventric ular ejection fraction is within the normal range. Mild concentric left ventricular hypertrophy. Sept al motion consistent with paced rhythm There is no ventricular septal defect visualized. LVEF is 55%. Right Ventricle The right ventricle is normal size. The right ventricular systolic function is normal. Pacemaker lead is present in the right ventricle. Atria The left atrium size is normal. The right atrium size is normal. The interatrial septum is intact wit h no evidence for an atrial septal defect. Aortic Valve The aortic valve is normal in structure. Aortic valve is trileaflet. There is no aortic valvular sten osis. No aortic regurgitation is present. Mitral Valve The mitral valve is normal in structure. No evidence of mitral valve stenosis. Trace mitral regurgita tion. Tricuspid Valve The tricuspid valve is normal in structure. There is no tricuspid valve stenosis. Mild tricuspid regu rgitation. The RVSP is 26 mmHg. Pulmonic Valve The pulmonary valve is normal in structure. There is no pulmonic valvular stenosis. There is no pulmo antwon valvular regurgitation. Great Vessels The aortic root is normal in size. The ascending aorta is normal in size. Aortic arch is not well vis ualized. IVC is normal in size and collapses >50% with inspiration. Pericardium There is no pericardial effusion. 2D Dimensions IVSD d PLAX 1.14 cm F: 0.6-1.0 Ao Root d 2.79 cm F: 2.7 - 3.3 LVPW d PLAX 1.05 cm F: 0.6 - 1.0 Ao Asc Diam d 2.97 cm F: 2.3 - 3.1 LVID d PLAX 3.74 cm F: 3.8 - 5.2 LVDs 2.69 cm F: 2.2 - 3.5 LV EF Teichholz 54.9 % FS 27.94 % LV EDV (Teich) 59.5 mL LV ESV (Teich) 26.8 mL Stroke Vol Index (Teich) 19.01 M-Mode TAPSE 2.00 cm (M/F) >1.7 Auto EF LV EDV A4C 83.3 mL LV EDV A2C 85.1 mL LV EDV BP 85.2 mL LV ESV A4C 41.3 mL LV ESV A2C 39.0 mL LV ESV BP 39.5 mL LVEF(%) A4C 50.4 % LVEF(%) A2C 54.2 % LVEF(%) BP 53.6 % LV SV A4C 41.9 ml LV SV A2C 46.1 ml LV SV BP 45.7 ml LV CO A4C 2.6 L/min LV CO A2C 2.8 L/min LV CO BP 2.7 L/min HR A4C 62.07 BPM HR A2C 60.10 BPM LV EDV Index (BP) LA Volume LA Length A4C 3.4 cm LA Length A2C 4.9 cm LA Area A4C s 8.18 cm2 LA Area A2C s 11.36 cm2 LA Vol A4C A-L 16.94 mL LA Vol A2C A-L 22.29 mL LA Vol Biplane A-L 23.5 mL LA Vol/BSA A4C A-L LA Vol/BSA A2C A-L LA Vol/BSA BP A-L 13.7 mL/m2 LA Vol A4C MOD 16.2 mL LA Vol A2C MOD 21.0 mL LA Vol BP MOD 22.3 mL RA Volume RA Area A4C 5.7 cm2 RA ESV A4C (A-L) 8.2mL RA Vol/BSA A4C A-L RA Length A4C 3.3 cm RA ESV A4C (MOD) 8.2mL LV Diastology MV E' medial 0.053 (>0.07 m/s) MV E Vmax 0.69 (0.4-1.3 m/s) MV E/E' MED 13.09 (<14) MV A Vmax 1.20 (0.4-1.3 m/s) MV E' lateral 0.042 (>0.1 m/s) E/A Ratio 0.6 MV E/E' LAT 16.43 (<14) MV E' Average 0.047 m/s MV E/E'(average) 14.57 Aortic Valve AoV Vmax 1.12 m/s LVOT Vmax 0.88 m/s AoV Peak Grad 5.0 mmHg LVOT Peak Grad 3.1 mmHg AoV Area (Vmax) 1.93 cm2 LVOT VTI 0.216 m AoV VTI 0.264 m LVOT Mean Grad 1.6 mmHg AoV Mean Pierre. 0.77 m/s LVOT SV 53.06 mL AoV Mean Grad 2.7 mmHg LVOT Diam s 1.75 cm AoV Area (VTI) 2.01 cm2 AV Regurg Peak Gr. 5.01 mmHg Velocity Ratio 0.79 Mitral Valve MV DT 297 (160-240 msec) MV Vmax TIPS 1.11 m/s MV Mean Grad 1.4 (<2mmHg) MV VTI 0.276 m Pulmonary Valve PV Vmax 0.73 (0.5-1.5 m/s) RVOT Vmax 0.40 m/s PV Peak Grad 2.1 mmHg RVOT Peak Gr. 0.7 mmHg PV Mean Pierre 0.46 m/s RVOT VTI 0.083 m PV Mean Grad 1.0 mmHg RVOT Mean Gr. 0.4 mmHg Tricuspid Valve RA Pressure 3.00 mmHg TR Vmax 2.40 m/s TV S' 0.12 m/s TR Peak Grad 23.1 mmHg RVSP (TR) 26.1 mmHg
== END 2024-05-24 02:23 ==
PROVIDERS: PCP Nurse Practitioner Family; Visit Provider Nurse Practitioner Family
DX: Z95.0 Presence of cardiac pacemaker (principal); I51.7 Cardiomegaly
CPT/HCPCS: 93306